=== PATIENT | male | born 1945 | race Caucasian/White ===

== ENCOUNTER 2018-07-01 18:14 | Inpatient (IN) | payer OTHER, MEDICARE ==
[2018-07-01] MEDS ORDERED: NA CHLORIDE 0.9% 1,000 ML ONE (18:53)
[2018-07-01 19:07] LABS: Absolute Lymphocytes (CBC) 1.9 K/uL (0.7-4.9); Absolute Monocytes 2.5 K/uL (0.1-1.3); Absolute Neutrophil 17.3 K/uL (1.8-8.0); Basophils % 0.2 % (0-1.3); Hematocrit 36.7 % (39.6-49.0); Lymphocytes % 8.6 % (15.3-44.8); MCH 30.2 pg (27.0-35.0); MCV 88.8 fL (80-100); MPV 9.1 fL (7.6-11.3); Monocytes % 11.4 % (3.3-12.3); RBC Red Blood Cell Count 4.13 M/uL (4.33-5.43)
[2018-07-01 19:11] LABS: Protime INR 1.14
--- NOTE | 2018-07-01 19:30 | RAD REPORT ---
EXAM DESCRIPTION: CT - Stone Protocol - 07/01/2018 7:01 pm CLINICAL HISTORY: Abdominal pain, abdominal distention COMPARISON: None. TECHNIQUE: Axial 5 mm thick images were obtained without oral or IV contrast. The [id number]-[id number] span s the entirety of the system partially obscuring uppermost abdomen and lung bases. All CT scans are performed using dose optimization technique as appropriate and may include automated exposure control or mA/KV adjustment according to patient size. FINDINGS: No hydronephrosis is present and no obstructing ureteral calculi. No suspicious renal mass es. Isodense masses and pyelonephritis are not excluded on a stone protocol CT scan. Bilateral perine phric stranding is present. Right kidney is incompletely rotated. Urinary bladder is mostly contracte d. Superiorly directed spurring from the right-side pubic symphysis has mild mass effect on the bladd er base. No bladder calculus. Prostate gland and seminal vesicles within normal range. Imaged portions of the liver, spleen and pancreas show no suspicious findings on non-contrast imaging . Cholecystectomy changes are present. No biliary tree dilatation. No significant adrenal finding. No suspicious bowel findings. No mass or bulky lymphadenopathy. Bilateral fat filled inguinal hernias are present with no acute com ponents. A very small fat only umbilical hernia is present. No free air, free fluid or inflammatory s tranding. Disc and bony degenerative changes are present. No destructive bone process. IMPRESSION: No hydronephrosis, obstructing calculus or acute finding seen. Isodense masses and pyelonephritis are not excluded on stone protocol technique. No acute GI process. Full findings are detailed in the body of the report.
[2018-07-01 19:35] LABS: Albumin 2.8 g/dL (3.4-5.0); Bilirubin Direct 0.1 mg/dL (0-0.2); CKMB Creatine Kinase MB 4.2 ng/mL (0.3-3.6); Magnesium 2.1 mg/dL (1.8-2.4); Potassium 3.3 mmol/L (3.5-5.1); Protein, Total 7.4 g/dL (6.4-8.2)
[2018-07-01 19:38] LABS: Bilirubin Total 0.4 mg/dL (0.2-1.0)
[2018-07-01] MEDS ORDERED: CEFEPIME 2 GM VIAL ONE (19:43)
[2018-07-01] MEDS ORDERED: LIDOCAINE VISCOUS 2% SOLN 15 ML UDC ONE (19:43)
[2018-07-01] MEDS ORDERED: NA CHLORIDE 0.9% 100 ML IV ONE (19:43)
--- NOTE | 2018-07-01 20:01 | RAD REPORT ---
EXAM DESCRIPTION: RAD - Chest Single View - 07/01/2018 6:58 pm CLINICAL HISTORY: Cough, shortness of breath COMPARISON: July 01, 2018 TECHNIQUE: AP portable chest image was obtained 1846 hours . FINDINGS: Continued mild prominence of the lung base markings. No definitive infiltrate. No consolid ation, mass or failure finding. Heart and vasculature are normal. No measurable pleural effusion and no pneumothorax. No gross bony abnormality seen. No acute aortic findings suspected. IMPRESSION: No acute cardiopulmonary process. No new finding from earlier study.
--- NOTE | 2018-07-01 20:30 | ER ---
Nurse's Notes [facility] Name: Jamie Mistry Age: 72 yrs Sex: Male : 1945 Arrival Date: 07/01/2018 Time: 18:18 Bed 6 Private MD: Silver Joe T Diagnosis: Hypotension;Unspecified kidney failure;Hypokalemia;Rhabdomyolysis;Obesity, unspecified;Elevated white blood cell count;Cystitis Presentation: 07/01 18:36 Presenting complaint: Patient states: " I had some blood drawn earlier and they said I ph needed to come in because my WBC was high and my kidney function was bad." Pt reports diarrhea on Saturday, also reports sweating and chills, denies pain, states, " I took my blood pressure this morning and it was normal and then when I took it again it was low (90s/60s) and it hasn't gotten above 100 all day." Pt diaphoretic in triage. Transition of care: patient was not received from another setting of care. Onset of symptoms was July 01, 2018. Risk Assessment: Do you want to hurt yourself or someone else? Patient reports no desire to harm self or others. Initial Sepsis Screen: Does the patient meet any 2 criteria? Systolic BP < 90 mmHg. HR > 90 bpm. Yes. Care prior to arrival: None. 18:36 Method Of Arrival: Ambulatory ph 18:36 Acuity: LILI 3 ph 21:19 Initial Sepsis Screen: Does the patient have a suspected source of infection? No. ak1 Patient's initial sepsis screen is negative. Historical: - Allergies: 18:42 PENICILLINS; ph 18:42 Sulfa (Sulfonamide Antibiotics); ph - Home Meds: 18:42 unknown BP med w/ diuretic [Active]; ph - PMHx: 18:42 Hypertension; ph - PSHx: 18:42 Cholecystectomy; Appendectomy; ph - Immunization history:: Adult Immunizations unknown. - Social history:: Smoking status: Patient/guardian denies using tobacco. - Ebola Screening: : No symptoms or risks identified at this time. - Family history:: not pertinent. Screenin:40 Abuse screen: Denies threats or abuse. Denies injuries from another. Nutritional hb screening: No deficits noted. Tuberculosis screening: No symptoms or risk factors identified. Fall Risk Total Ngo Fall Scale indicates Low Risk Score (25-44 pts). Fall prevention measures have been instituted. Side Rails Up X 2 Frequent Obs/Assesments occuring As available Patient and Family Educated on Fall Prevention Program and strategies. Assessment: 19:01 General: Appears in no apparent distress. ill, Behavior is calm, cooperative. Pain: hb Denies pain. Neuro: Level of Consciousness is awake, alert, obeys commands, Oriented to person, place, time, situation. Cardiovascular: Heart tones S1 S2 present Capillary refill < 3 seconds. Respiratory: Airway is patent Trachea midline Respiratory effort is even, unlabored, Respiratory pattern is regular, symmetrical, Breath sounds are clear bilaterally. GI: No signs and/or symptoms were reported involving the gastrointestinal system. : No signs and/or symptoms were reported regarding the genitourinary system. EENT: No signs and/or symptoms were reported regarding the EENT system. Derm: Skin is intact, is healthy with good turgor, Skin is diaphoretic, Skin is pale. Musculoskeletal: No signs and/or symptoms reported regarding the musculoskeletal system. 20:21 Reassessment: PT ABLE TO AMBULATE TO RESTROOM AND URINATE WITHOUT ISSUE, MD NOTIFIED. bp OLIVAS CANCELLED BY MD. PRE VOID BLADDER SCAN REVEALED NO RETENTION, 150CC IN BLADDER. Vital Signs: 18:39 BP 98 / 64; Pulse 110; Resp 22; Temp 97.7(TE); Pulse Ox 97% on R/A; Weight 151.5 kg; ph 19:58 ak1 20:26 BP 97 / 48; Pulse 103; Resp 25; Pulse Ox 97% ; bp 21:18 BP 119 / 56; Pulse 102; Resp 25; Temp 97.7(O); Pulse Ox 99% on R/A; Pain 0/10; ak1 19:58 150mL from bladder scan pre-void. ak1 ED Course: 18:18 Patient arrived in ED. mr 18:18 Silver Joe MD is Private Physician. mr 18:29 Rafael Phillips MD is Attending Physician. angie 18:36 Missed attempt(s): 20 gauge in right forearm. by Hernan WILLIAMSON. Bleeding controlled, band hb aid applied, catheter tip intact. 18:39 Triage completed. ph 18:40 Patient has correct armband on for positive identification. Placed in gown. Bed in low hb position. Call light in reach. Side rails up X 1. 18:40 Inserted saline lock: 22 gauge in left antecubital area, using aseptic technique. Blood hb collected. 18:42 Arm band placed on Patient placed in an exam room, on a stretcher, in view of staff ph members, on quality assurance monitor body, on pulse oximetry. 18:56 Janette Patel, RN is Primary Nurse. ak1 18:56 X-ray completed. Portable x-ray completed in exam room. Patient tolerated procedure mh1 well. 18:56 XRAY Chest (1 view) In Process Unspecified. EDMS 19:02 CT Stone Protocol In Process Unspecified. EDMS 19:42 Notified ED physician of a critical lab result(s). CR 5.4, CPK 3714 Dr Alan moncada notified. 19:56 Bladder scan completed. 150. mt 20:22 Inserted saline lock: 20 gauge in right hand, using aseptic technique. bp 20:25 Magalis Deleon MD is Hospitalizing Provider. angie 21:16 No provider procedures requiring assistance completed. Patient admitted, IV remains in ak1 place. Administered Medications: 18:45 Drug: NS 0.9% 500 ml Route: IV; Rate: bolus; Site: left antecubital; hb 19:57 Follow up: IV Status: Completed infusion ak1 20:20 Drug: NS 0.9% 1000 ml Route: IV; Rate: 125 ml/hr; Site: right hand; bp 22:02 Follow up: IV Status: Completed infusion ak1 20:20 Drug: Cefepime 2 grams Route: IVPB; Rate: 200 ml/hr; Infused Over: 30 mins; Site: right bp hand; 21:58 Follow up: IV Status: Completed infusion ak1 20:25 Not Given (Duplicate Order): NS 0.9% 1000 ml IV at 125 ml/hr continuous bp 20:55 Drug: Pepcid 20 mg Route: IVP; Site: right hand; lp1 21:57 Follow up: Response: No adverse reaction ak1 20:55 Drug: Aspirin 81 mg Route: PO; lp1 21:57 Follow up: Response: No adverse reaction ak1 20:55 Drug: Potassium Chloride 20 mEq Route: PO; lp1 21:56 Follow up: Response: No adverse reaction ak1 Outcome: 20:30 Decision to Hospitalize by Provider. angie 21:17 Condition: stable ak1 21:17 Instructed on the need for admit. 22:03 Admitted to Med/surg accompanied by tech, via wheelchair, room 428, with chart, Report ak1 called to Batsheva 22:13 Patient left the ED. ak1 Signatures: Dispatcher [employer] EDMS Rafael Phillips MD MD cha Rivera, Maria Gail Umana 1 Megan Arguelles, RN RN bb Melvina Parada RN RN 1 Janette Patel RN RN ak1 Margaret Chopra, Lourdes Katz RN, ph, Rachael Rose RN, mt, Brian RN RN bp
--- NOTE | 2018-07-01 20:30 | EDPHYS ---
Physician Documentation [facility] Name: Jamie Mistry Age: 72 yrs Sex: Male : 1945 Arrival Date: 07/01/2018 Time: 18:18 Bed 6 Private MD: Silver Joe T ED Physician Rafael Phillips HPI: 07/01 18:54 This 72 yrs old Male presents to ER via Ambulatory with complaints of angie Abnormal Lab Results. 18:54 The patient has shortness of breath at rest, with light activity. Onset: The angie symptoms/episode began/occurred 3 day(s) ago. Duration: The symptoms are continuous, and are steadily getting worse. The patient's shortness of breath has no apparent modifying factors. weak, tired, decreased urine output. The patient has experienced near-syncope, almost passed out, felt dizzy, felt faint, felt generally weak. Duration: The patient has had multiple episodes. Associated signs and symptoms: Pertinent positives: non-productive cough, dizziness, fever, nausea. Severity of symptoms: At their worst the symptoms were moderate in the emergency department the symptoms are unchanged. Historical: - Allergies: 18:42 PENICILLINS; ph 18:42 Sulfa (Sulfonamide Antibiotics); ph - Home Meds: 18:42 unknown BP med w/ diuretic [Active]; ph - PMHx: 18:42 Hypertension; ph - PSHx: 18:42 Cholecystectomy; Appendectomy; ph - Immunization history:: Adult Immunizations unknown. - Social history:: Smoking status: Patient/guardian denies using tobacco. - Ebola Screening: : No symptoms or risks identified at this time. - Family history:: not pertinent. ROS: 18:54 Constitutional: Negative for fever, chills, and weight loss, Eyes: Negative for injury, angie pain, redness, and discharge, ENT: Negative for injury, pain, and discharge, Neck: Negative for injury, pain, and swelling, Cardiovascular: Negative for chest pain, palpitations, and edema, Back: Negative for injury and pain, MS/Extremity: Negative for injury and deformity, Skin: Negative for injury, rash, and discoloration, Neuro: Negative for headache, weakness, numbness, tingling, and seizure, Psych: Negative for depression, anxiety, suicide ideation, homicidal ideation, and hallucinations, Allergy/Immunology: Negative for hives, rash, and allergies, Endocrine: Negative for neck swelling, polydipsia, polyuria, polyphagia, and marked weight changes, Hematologic/Lymphatic: Negative for swollen nodes, abnormal bleeding, and unusual bruising. 18:54 Respiratory: Positive for cough. 18:54 Abdomen/GI: Positive for nausea, abdominal distension. Exam: 18:54 Abdomen/GI: angie 18:54 Constitutional: This is a well developed, well nourished patient who is awake, alert, and in no acute distress. Head/Face: Normocephalic, atraumatic. Eyes: Pupils equal round and reactive to light, extra-ocular motions intact. Lids and lashes normal. Conjunctiva and sclera are non-icteric and not injected. Cornea within normal limits. Periorbital areas with no swelling, redness, or edema. ENT: Nares patent. No nasal discharge, no septal abnormalities noted. Tympanic membranes are normal and external auditory canals are clear. Oropharynx with no redness, swelling, or masses, exudates, or evidence of obstruction, uvula midline. Mucous membranes moist. Neck: Trachea midline, no thyromegaly or masses palpated, and no cervical lymphadenopathy. Supple, full range of motion without nuchal rigidity, or vertebral point tenderness. No Meningismus. Chest/axilla: Normal chest wall appearance and motion. Nontender with no deformity. No lesions are appreciated. Back: No spinal tenderness. No costovertebral tenderness. Full range of motion. Male : Normal genitalia with no discharge or lesions. Skin: Warm, dry with normal turgor. Normal color with no rashes, no lesions, and no evidence of cellulitis. MS/ Extremity: Pulses equal, no cyanosis. Neurovascular intact. Full, normal range of motion. Neuro: Awake and alert, GCS 15, oriented to person, place, time, and situation. Cranial nerves II-XII grossly intact. Motor strength 5/5 in all extremities. Sensory grossly intact. Cerebellar exam normal. Normal gait. Psych: Awake, alert, with orientation to person, place and time. Behavior, mood, and affect are within normal limits. 18:54 Cardiovascular: Rate: tachycardic, Rhythm: regular, Pulses: Pulses are 4+ in bilateral radial, brachial, femoral, popliteal, posterior tibial and and dorsalis pedis arteries.. Heart sounds: normal, Edema: is not appreciated, JVD: is not appreciated. 18:54 Respiratory: mild respiratory distress is noted, Respirations: normal, Breath sounds: decreased breath sounds, that are mild, are scattered, rhonchi. 18:54 Musculoskeletal/extremity: Circulation is intact in all extremities. Sensation intact. [facility] Compartment Syndrome exam of affected extremity: is normal. DVT Exam: No signs of deep vein thrombosis. no pain, no swelling, no tenderness, negative Homans' sign noted on exam, no appreciated bluish discoloration, no erythema, no increased warmth. Vital Signs: 18:39 BP 98 / 64; Pulse 110; Resp 22; Temp 97.7(TE); Pulse Ox 97% on R/A; Weight 151.5 kg; ph 19:58 ak1 20:26 BP 97 / 48; Pulse 103; Resp 25; Pulse Ox 97% ; bp 21:18 BP 119 / 56; Pulse 102; Resp 25; Temp 97.7(O); Pulse Ox 99% on R/A; Pain 0/10; ak1 19:58 150mL from bladder scan pre-void. ak1 MDM: 18:29 Patient medically screened. [facility] 19:00 Data reviewed: vital signs, nurses notes, lab test result(s), EKG, radiologic studies, [facility] CT scan, plain films. 07/01 18:47 Order name: Basic Metabolic Panel; Complete Time: 20:20 [facility] 07/01 18:47 Order name: CBC with Diff; Complete Time: 20:20 [facility] 07/01 18:47 Order name: Ckmb; Complete Time: 20:20 [facility] 07/01 18:47 Order name: CPK; Complete Time: 20:20 [facility] 07/01 18:47 Order name: LFT's; Complete Time: 20:20 [facility] 07/01 18:47 Order name: Magnesium; Complete Time: 20:20 [facility] 07/01 18:47 Order name: NT PRO-BNP; Complete Time: 20:20 [facility] 07/01 18:47 Order name: PT-INR; Complete Time: 20:20 [facility] 07/01 18:47 Order name: Ptt, Activated; Complete Time: 20:20 [facility] 07/01 18:47 Order name: Troponin (emerg Dept Use Only); Complete Time: 20:20 [facility] 07/01 18:47 Order name: Blood Culture Adult (2) [facility] 07/01 18:47 Order name: Urine Culture [facility] 07/01 18:47 Order name: Lipase; Complete Time: 20:20 [facility] 07/01 18:47 Order name: Lactate; Complete Time: 20:20 [facility] 07/01 18:47 Order name: XRAY Chest (1 view); Complete Time: 20:20 [facility] 07/01 18:47 Order name: EKG; Complete Time: 18:47 [facility] 07/01 18:47 Order name: Cardiac monitoring; Complete Time: 18:57 [facility] 07/01 18:47 Order name: EKG - Nurse/Tech; Complete Time: 19:16 [facility] 07/01 18:47 Order name: CT Stone Protocol; Complete Time: 20:20 [facility] 07/01 18:47 Order name: Procalcitonin; Complete Time: 20:20 [facility] 07/01 20:30 Order name: TSH [facility] 07/01 20:38 Order name: Urine Dipstick--Ancillary (enter results) ms 07/01 20:40 Order name: CONS Physician Consult EDWI 07/01 18:47 Order name: IV Saline Lock; Complete Time: 18:58 [facility] 07/01 18:47 Order name: Labs collected and sent; Complete Time: 18:57 [facility] 07/01 18:47 Order name: O2 Per Protocol; Complete Time: 18:57 [facility] 07/01 18:47 Order name: O2 Sat Monitoring; Complete Time: 18:57 [facility] 07/01 18:47 Order name: Urine Dipstick-Ancillary (obtain specimen); Complete Time: 20:25 [facility] 07/01 18:47 Order name: Bladder Scanner; Complete Time: 19:55 [facility] 07/01 19:09 Order name: Morales: viscus lido; Complete Time: 20:08 [facility] Administered Medications: 18:45 Drug: NS 0.9% 500 ml Route: IV; Rate: bolus; Site: left antecubital; hb 19:57 Follow up: IV Status: Completed infusion ak1 20:20 Drug: NS 0.9% 1000 ml Route: IV; Rate: 125 ml/hr; Site: right hand; bp 22:02 Follow up: IV Status: Completed infusion ak1 20:20 Drug: Cefepime 2 grams Route: IVPB; Rate: 200 ml/hr; Infused Over: 30 mins; Site: right bp hand; 21:58 Follow up: IV Status: Completed infusion ak1 20:25 Not Given (Duplicate Order): NS 0.9% 1000 ml IV at 125 ml/hr continuous bp 20:55 Drug: Pepcid 20 mg Route: IVP; Site: right hand; lp1 21:57 Follow up: Response: No adverse reaction ak1 20:55 Drug: Aspirin 81 mg Route: PO; lp1 21:57 Follow up: Response: No adverse reaction ak1 20:55 Drug: Potassium Chloride 20 mEq Route: PO; lp1 21:56 Follow up: Response: No adverse reaction ak1 Disposition: 07/01/18 20:30 Hospitalization ordered by Magalis Deleon for Inpatient Admission. Preliminary diagnosis are Hypotension, Unspecified kidney failure, Hypokalemia, Rhabdomyolysis, Obesity, unspecified, Elevated white blood cell count, Cystitis. - Bed requested for Telemetry/MedSurg (Inpatient). - Status is Inpatient Admission. ak1 - Condition is Fair. - Problem is new. - Symptoms have improved. UTI on Admission? Yes Signatures: Dispatcher [employer] EDWI Rafael Phillips MD MD cha Pena, Laura, RN RN lp1 Janette Patel RN RN ak1 Margaret Chopra RN RN Marci Licea RN RN Lourdes Britt RN TERI Esau Santos RN RN bp Corrections: (The following items were deleted from the chart) 20:56 20:30 Hospitalization Ordered by Magalis Deleon MD for Inpatient Admission. Preliminary cg diagnosis is Hypotension; Unspecified kidney failure; Hypokalemia; Rhabdomyolysis; Obesity, unspecified; Elevated white blood cell count; Cystitis. Bed requested for Telemetry/MedSurg (Inpatient). Status is Inpatient Admission. Condition is Fair. Problem is new. Symptoms have improved. UTI on Admission? Yes. angie 22:13 20:56 07/01/2018 20:30 Hospitalization Ordered by Magalis Deleon MD for Inpatient ak1 Admission. Preliminary diagnosis is Hypotension; Unspecified kidney failure; Hypokalemia; Rhabdomyolysis; Obesity, unspecified; Elevated white blood cell count; Cystitis. Bed requested for Telemetry/MedSurg (Inpatient). Status is Inpatient Admission. Condition is Fair. Problem is new. Symptoms have improved. UTI on Admission? Yes. cg
[2018-07-01] MEDS ORDERED: ASPIRIN 81 MG CHEWABLE TABLET ONE (21:01)
[2018-07-01] MEDS ORDERED: FAMOTIDINE 20 MG/2 ML VIAL IV ONE (21:01)
[2018-07-01] MEDS ORDERED: POTASSIUM CL SA 10 MEQ TAB PO ONE (21:01)
[2018-07-01 21:06] LABS: Urine Blood 1+ (NEG); Urine Glucose NEGATIVE (NEG); Urine Protein 2+ (NEG); Urine Specific Gravity >1.030 (1.005-1.030)
--- NOTE | 2018-07-01 21:43 | P.HP ---
Certification for Inpatient Patient admitted to: Inpatient With expected LOS: >2 Midnights Practitioner: I am a practitioner with admitting privileges, knowledge of patient current condition, hospital course, and medical plan of care. Services: Services provided to patient in accordance with Admission requirements found in Title 42 Section 412.3 of the Code of Federal Regulations Patient History Date of Service: 07/01/18 Reason for admission: Acute kidney injury History of Present Illness: Mr Mistry is a 72-year-old male with history of morbid obesity and hypertension , who came to the hospital referred by his PCP due to abnormal lab work. He states that last Saturday, has had a busy day at work, walking outside in the hot temperature, and he was not able to catch up with water. Since so, he has start to feel progressively weak and dizzy. He had some diarrhea episode. He denied any vomiting, but he stated that the food did not taste normal for him. He denied any fever, but has has chills and sweating episode. No abdominal pain , shortness of breath or chest pain. His blood pressure was on the lower side at home, 100's/ 60s. Yesterday he went to see his PCP, order lab work. The patient was called by the PCP office today, referring to the hospital due to significantly abnormal kidney function, creatinine in was 5.4, WBC 21.6, total CK 3714, elevated troponin I and procalcitonin. Lactate is within normal limits. Vital signs on arrival shows normal temperature, BP 98/64, HR 110. Allergies Penicillins Allergy (Verified 07/01/18 21:15) Rash Sulfa (Sulfonamide Antibiotics) Allergy (Verified 07/01/18 21:15) Rash - Past Medical/Surgical History -: Morbid obesity -: Hypertension -: Cholecystectomy -: Appendectomy - Family History Family History: Reviewed- Non-Contributory - Social History Smoking Status: Never smoker Alcohol use: Yes CD- Drugs: No Caffeine use: Yes Place of Residence: Home Review of Systems 10-point ROS is otherwise unremarkable Physical Examination - Physical Exam General: Alert, In no apparent distress HEENT: Atraumatic, PERRLA, Mucous membr. moist/pink, EOMI, Sclerae nonicteric Neck: Supple, 2+ carotid pulse no bruit, No LAD, Without JVD or thyroid abnormality Respiratory: Clear to auscultation bilaterally, Normal air movement Cardiovascular: Regular rate/rhythm, Normal S1 S2, Systolic murmur (Aortic area radiating to bilateral neck) Gastrointestinal: Normal bowel sounds, No tenderness Musculoskeletal: No tenderness Integumentary: No rashes Neurological: Normal speech, Normal strength at 5/5 x4 extr, Normal tone, Normal affect Lymphatics: No axilla or inguinal lymphadenopathy - Studies Laboratory Data (last 24 hrs) 07/01/18 18:30: PT 13.5 H, INR 1.14, APTT 25.5 07/01/18 18:30: WBC 21.6 H*, Hgb 12.5 L, Hct 36.7 L, Plt Count 247 07/01/18 18:30: Sodium 133 L, Potassium 3.3 L, BUN 63 H, Creatinine 5.40 H*, Glucose 151 H, Magnesium 2.1, Total Bilirubin 0.4, AST 103 H, ALT 57, Alkaline Phosphatase 145 H, Lipase 135 Assessment and Plan - Problems (Diagnosis) (1) Acute renal injury Current Visit: Yes Status: Acute (2) Rhabdomyolysis Current Visit: Yes Status: Acute Qualifiers: Rhabdomyolysis type: non-traumatic Qualified Code(s): M62.82 - Rhabdomyolysis (3) Dehydration Current Visit: Yes Status: Acute (4) Morbid obesity Current Visit: Yes Status: Acute (5) Leukocytosis Current Visit: Yes Status: Acute Qualifiers: Leukocytosis type: unspecified Qualified Code(s): D72.829 - Elevated white blood cell count, unspecified (6) Systolic murmur Current Visit: Yes Status: Acute - Plan 1. rhabdomyolysis: Likely due to severe volume depletion and possible heat exhaustion. Will continue with aggressive volume resuscitation. 2. Acute renal injury: Due to volume depletion, continue IV fluids. [employer]ing Supervisor has been consulted. 3. Leukocytosis: This is most likely secondary to dehydration, due to his clinical history and presentation. In any case within continue with sepsis workup, procalcitonin is elevated, blood cultures are in process, continue empiric Rocephin IV. 4. Hypertension: At this point his BP is on the lower side with due to volume depletion. Continue IV fluids. 5. Systolic murmur: Will order an echocardiogram. - Advance Directives Does patient have a Living Will: No Does patient have a Durable POA for Healthcare: No - Code Status/Comfort Care Code Status Assessed: Yes Code Status: Full Code
[2018-07-02] MEDS ORDERED: ONDANSETRON 4 MG/2 ML VIAL IV PRN (02:18)
[2018-07-02] MEDS: NA CHLORIDE 0.9% 1,000 ML IV SCH ×2 (03:10→10:26)
[2018-07-02 04:39] LABS: Absolute Lymphocytes (CBC) 1.6 K/uL (0.7-4.9); Absolute Monocytes 2.1 K/uL (0.1-1.3); Absolute Neutrophil 14.8 K/uL (1.8-8.0); Basophils % 0.3 % (0-1.3); Eosinophils % 0.2 % (0-4.4); Hematocrit 33.3 % (39.6-49.0); Lymphocytes % 8.8 % (15.3-44.8); MCH 30.6 pg (27.0-35.0); MCV 89.4 fL (80-100); MPV 9.5 fL (7.6-11.3); Monocytes % 11.4 % (3.3-12.3); RBC Red Blood Cell Count 3.73 M/uL (4.33-5.43)
[2018-07-02 05:12] LABS: Potassium 3.2 mmol/L (3.5-5.1)
[2018-07-02] MEDS ORDERED: POTASSIUM CL SA 10 MEQ TAB PO ONE (06:14)
[2018-07-02 06:25] LABS: Magnesium 1.9 mg/dL (1.8-2.4)
--- NOTE | 2018-07-02 07:20 | EKG ---
Test Date: 2018-07-01 Test Time: 19:10:55 Head Miller: MARTINA MEASUREMENT RESULTS: Intervals: Rate: 95 MO: 162 QRSD: 94 QT: 332 QTc: 417 [place]: P: 59 MO: 162 QRS: 66 T: 65 INTERPRETIVE STATEMENTS: Sinus rhythm with premature atrial complexes Otherwise normal ECG No previous ECG available for comparison Electronically Signed On 07-02-18 07:19:47 CDT by Raymundo [place]
[2018-07-02 09:14] LABS: Thyroid Stimulating Hormone 0.28 uIU/mL (0.36-3.74); Uric Acid 11.3 mg/dL (3.5-7.2)
--- NOTE | 2018-07-02 10:01 | RAD REPORT ---
EXAM DESCRIPTION: US - Renal Ultrasound-Complete - 07/02/2018 9:26 am CLINICAL HISTORY: Acute renal failure COMPARISON: July 01 FINDINGS: The right kidney measures 13.0 x 6.4 x 6.2 cm. The left kidney measures 16.0 x 6.6 x 6.3 cm. Renal cortical thickness is normal. There is a slight increase in cortical echogenicity which cou ld be a body habitus artifact or mild medical renal disease. No hydronephrosis or suspicious renal ma ss. Bladder is mostly contracted. No gross abnormality seen. IMPRESSION: No hydronephrosis or suspicious renal mass. Slight increase in cortical echogenicity could be medical renal disease or body habitus artifact.
[2018-07-02] MEDS ORDERED: MAGNESIUM SULFATE 1 gm IVPB 1 GM/100 ML BAG IV ONE (11:41)
[2018-07-02] MEDS ORDERED: KCL 20 MEQ/100 mL IVPB 20 MEQ/100 ML BAG IV SCH (12:00)
[2018-07-02 12:15] LABS: Urine Protein/Creatinine Ratio 0.56 ratio (<0.15)
[2018-07-02] MEDS: NACHLORIDE 0.45% 1,000 ML with NA BICARB 8.4% 75 MEQ IV SCH ×4 (12:17→21:44)
[2018-07-02 12:39] LABS: Arterial Blood Carboxyhemoglob 1.1 % (0-1.5); Blood Gas Oxyhemoglobin 94.3 % (94-97); Blood O2 Saturation 96.1 % (92-98.5)
--- NOTE | 2018-07-02 12:49 | ECHO ---
HEIGHT: 6 ft 0 in WEIGHT: 333 lb 14.4 oz DATE OF STUDY: 07/02/[address]: Magalis Berman MD 2-DIMENSIONAL: YES M.MODE: YES DOPPLER: YES COLOR FLOW: YES TDS: NO PORTABLE: NO DEFINITY: NO BUBBLE STUDY: NO DIAGNOSIS: SYSTOLIC MURMUR CARDIAC HISTORY: CATHERIZATION: NO SURGERY: NO PROSTHETIC VALVE: NO PACEMAKER: NO MEASUREMENTS (cm) DIASTOLIC (NORMALS) SYSTOLIC (NORMALS) IVSd 1.4 (0.6-1.2) LA Diam 5.0 (1.9-4.0) LVEF 76% LVIDd 4.5 (3.5-5.7) LVIDs 2.5 (2.0-3.5) %FS 45% LVPWd 1.3 (0.6-1.2) Ao Diam 2.4 (2.0-3.7) 2 DIMENSIONAL ASSESSMENT: RIGHT ATRIUM: NORMAL LEFT ATRIUM: DILATED RIGHT VENTRICLE: NORMAL LEFT VENTRICLE: LEFT VENTRICULAR HYPERTROPHY TRICUSPID VALVE: NORMAL MITRAL VALVE: NORMAL PULMONIC VALVE: NORMAL AORTIC VALVE: NORMAL PERICARDIAL EFFUSION: NONE AORTIC ROOT: NORMLA LEFT VENTRICULAR WALL MOTION: NORMAL DOPPLER/COLOR FLOW: MODERATE AORTIC STENOSIS. COMMENTS: MODERATE AORTIC STENOSIS. AORTIC VALVE AREA 1.1 CENTIMETERS SQUARED. NORMAL LEFT VENTRICULAR EJECTION FRACTION AND FUNCTION. LEFT VENTRICULAR HYPERTROPHY. LEFT ATRIAL ENLARGEMENT. NO EFFUSION. TECHNOLOGIST: Chilango MILES
--- NOTE | 2018-07-02 13:22 | P.PN ---
Subjective Date of Service: 07/02/18 Chief Complaint: Acute kidney injury Subjective: Tolerating diet, Ambulating, Improving, Working w/ PT, Doing well Review of Systems General: As per HPI Physical Examination - Vital Signs Temperature: 97.7 F Blood Pressure: 109/58 Pulse: 78 Respirations: 18 Pulse Ox (%): 98 - Physical Exam General: Alert, In no apparent distress HEENT: Atraumatic, PERRLA, EOMI Neck: Supple, JVD not distended Respiratory: Clear to auscultation bilaterally, Normal air movement Cardiovascular: Regular rate/rhythm, Normal S1 S2 Gastrointestinal: Normal bowel sounds, No tenderness Musculoskeletal: No tenderness Integumentary: No rashes Neurological: Normal speech, Normal tone, Normal affect Lymphatics: No axilla or inguinal lymphadenopathy - Studies Laboratory Data (last 24 hrs) 07/01/18 18:30: PT 13.5 H, INR 1.14, APTT 25.5 07/01/18 18:30: WBC 21.6 H*, Hgb 12.5 L, Hct 36.7 L, Plt Count 247 07/01/18 18:30: Sodium 133 L, Potassium 3.3 L, BUN 63 H, Creatinine 5.40 H*, Glucose 151 H, Magnesium 2.1, Total Bilirubin 0.4, AST 103 H, ALT 57, Alkaline Phosphatase 145 H, Lipase 135 Medications List Reviewed: Yes Assessment & Plan - Problems (Diagnosis) (1) Rhabdomyolysis Onset Date: 07/02/18 Current Visit: Yes Status: Acute Plan: CPK elevated. Now improving -IV fluids with Nephrology consulted. -Will repeat lab lanny AM Qualifiers: Rhabdomyolysis type: non-traumatic Qualified Code(s): M62.82 - Rhabdomyolysis (2) Acute renal injury Onset Date: 07/02/18 Current Visit: Yes Status: Acute Plan: BUN.CR elevated. Most likely 2.2 to Dehydration and Rhabdomylosis -IV fluids and avoid Nephrotoxic agent (3) Dehydration Onset Date: 07/02/18 Current Visit: Yes Status: Acute (4) Morbid obesity Onset Date: 07/02/18 Current Visit: Yes Status: Chronic (5) Systolic murmur Onset Date: 07/02/18 Current Visit: Yes Status: Chronic Plan: ECHO with aortic Stenosis -Will cardiology consulted outpt for further workup Discharge Plan: Home Plan to discharge in: 48 Hours - Code Status/Comfort Care Code Status Assessed: Yes Critical Care: No
--- NOTE | 2018-07-02 15:52 | CON ---
Date of Consultation: 07/02/2018 Consulting Physician: Dr. Gabriel. Reason For Consultation: Elevated BUN, creatinine, rhabdomyolysis, hypertension. History Of Present Illness: This is a pleasant 72-year-old gentleman with significant past medical h istory of morbid obesity, hypertension, hyperlipidemia, osteoarthritis. The patient was in his [facility] state of health. According to him for the last few days, he working hard without real rest. The patient found to have weakness and dizziness with episode of multiple diarrhea, for that reason, he r eported to his primary. In the primary office, CK was elevated to 3700 and creatinine was up to 5.4, for that reason, the patient was admitted in the ER, was hypotensive, systolic down to 90s. The [facility] ient admits that for the last almost couple of months, he using Advil 3-6 tablets in a daily basis. The patient has hesitancy, no hematuria or foamy urine. No other autoimmune symptoms. Past Medical History: Include, 1.Obesity. 2.Hypertension. 3.Hyperlipidemia. 4.Osteoarthritis, on Advil. Past Surgical History: Include cholecystectomy, appendectomy. Family History: Positive for hypertension. Social History: Denies smoking, denies drinking, denies drug abuse. Review of Systems: Head and Neck: No red eye. No ear pain. GI: No nausea, no vomiting. : No polyuria. No dysuria. No hematuria. Has hesitancy. BELLMAN CAPTAIN: Not applicable. Respiratory: No shortness of breath. Cardiovascular: No chest pain. Neurologic: Has multiple joint pain. Musculoskeletal: Multiple joint pain and low back pain. Endocrine: No polydipsia. Skin: No rash. Physical Examination: Vital Signs: When I saw the patient, blood pressure 104/59, pulse of 80, afebrile. The patient was on IV fluid. Voiding well. Chest: Clear to auscultation. Heart: S1, S2. Regular. Abdomen: Morbidly obese. Could not appreciate any organomegaly or renal bruit. Extremities: Plus edema. Vascular Exam: No carotid bruit. Skin: No rashes. Neurologic: Alert and oriented x3. Nonfocal. No tremor. Laboratory Data: WBC 18.7, H and H 11.4/33.3, platelets 205. On admission, H and H 12.5/36.7, eosin ophil 200 on the peripheral. Sodium 135, potassium 3.2, bicarb 23, BUN 71, creatinine 4.9, GFR of 12 , uric acid 11.3, calcium 7.5, magnesium 1.9. CK 3900. Cardiac enzyme was negative. TSH 0.2. Urin alysis, +2 protein. Specific gravity above 1.030. Renal ultrasound has normal size to a large size kidney with severe disproportion in the kidney size, right kidney 13, left kidney of 16. No hydronep hrosis. Has some echogenicity. Medications: Current medications in the hospital include, Lovenox, Tylenol, Zofran. Normal saline a t 150 per hour. KCl. Assessment And Plan: Acute kidney injury, multifactorial, secondary to, 1.Rhabdomyolysis. 2.Nonsteroidal use. 3.Dehydration and poor perfusion acute tubular necrosis. 4.Superimposed with ARB and diuresis with hydrochlorothiazide. The patient nonoliguric. No hyperka lemia or acidosis. Given the component of rhabdomyolysis even though that he does not have any acido sis, I am going to start the patient on bicarb drip, and we will monitor the patient. I agree with h olding hydrochlorothiazide and ARB for the time being and nonsteroidal, we will monitor. 5.Given the disproportion in the kidney size, renal artery stenosis has a possibility. I am going t o be reluctant to do any angiogram for the time being. I will keep eye on it. If kidney function di d not improve that is another possibility that we need to be rule it out down in the row with renal s can or MRA if needed. 6.Given the rhabdomyolysis and without any nonsteroidal, I am going to send for TSH to evaluate. 7.Rhabdomyolysis, will start bicarb drip. We will aggressively replace potassium and magnesium and we will follow up. 8.Hypertension, with the presence of acute kidney injury. Hold hydrochlorothiazide and ARB, and we will monitor. Currently blood pressure controlled. He was low blood pressure on presentation, so we will hold all blood pressure medication. 9.Hypokalemia, hypomagnesemia. We will supplement aggressively given the rhabdomyolysis. 10.Contraction alkalosis with metabolic acidosis secondary to renal failure as above. 11.Marginal hyperkalemia. We will continue hydration. Case discussed with the patient, verbalized understanding. YOAN/ANNMARIE Voice ID: [id number] Report ID: [id number]
[2018-07-02] MEDS: ENOXAPARIN 30 MG/0.3 ML SQ SCH (18:39)
[2018-07-02] MEDS: ACETAMINOPHEN 500 MG TAB PO PRN (18:53)
[2018-07-03] MEDS: NACHLORIDE 0.45% 1,000 ML with NA BICARB 8.4% 75 MEQ IV SCH ×8 (02:20→18:35)
[2018-07-03 05:23] LABS: Albumin 2.1 g/dL (3.4-5.0); Magnesium 2.2 mg/dL (1.8-2.4); Phosphorus 2.2 mg/dL (2.5-4.9)
[2018-07-03] MEDS ORDERED: POTASSIUM CL SA 10 MEQ TAB PO ONE (05:43)
[2018-07-03] MEDS: ACETAMINOPHEN 500 MG TAB PO PRN (09:18)
[2018-07-03 10:19] LABS: Rheumatoid Factor NEG (NEG)
--- NOTE | 2018-07-03 16:55 | PN ---
Date of Progress Note: 07/03/2018 Code status: Full Subjective: The patient seen and examined. Chart reviewed and case discussed with RN. The patient states he is feeling better. He wanted to move around and ambulate. He does report some constipation. Review of Systems: Negative except as above. Medications: List reviewed. Physical Examination: Vital Signs: Temperature 97.6, heart rate 79, blood pressure 139/64, respirations 17, O2 saturation 97% on room air. General: Awake, alert, oriented x3, not in any acute distress. Elderly male, somewhat ill-appearing, obese, BMI of 48.2. CV: S1, S2. No murmurs. Peripheral pulses present. Respiratory: Moving air well bilaterally. No wheezing. Gastrointestinal: Abdomen is soft, nontender, nondistended. Positive bowel sounds. Extremities: No clubbing, cyanosis. The patient does have 1+ peripheral edema. Neurologic: Nonfocal. Laboratory Data: Sodium 135, potassium 3, chloride 99, CO2 of 28, BUN 64, creatinine 2.7, glucose 130, calcium 7, phosphorus 2.2, magnesium 2.2. CK is 3039, troponin 0.19, 0.12. Urine culture growing Enterococcus faecalis, vancomycin sensitive. Blood culture, no growth to date. Assessment And Plan: A 72-year-old male with: 1. Acute rhabdomyolysis, nontraumatic, CK levels improving, still elevated. We will continue with IV fluids with bicarb drip. Appreciate Nephrology input. 2. Acute kidney injury. His creatinine is improving secondary to rhabdomyolysis. We will avoid NSAIDs. Continue to monitor creatinine. 3. Elevated troponin level. No chest pain, likely secondary to demand mismatch. We will follow up with Cardiology recommendations. Echocardiogram does show aortic stenosis. 4. Aortic stenosis. 5. Morbid obesity, BMI 48.2. 6. Acute dehydration, improving. 7. Hypokalemia. Replace and monitor. 8. Hypophosphatemia. We will replace and monitor. 9. Moderate protein-calorie malnutrition. Albumin is 2.1. 10. Urinary tract infection with Enterococcus faecalis. We will add IV antibiotics. Blood cultures, negative to date. Plan: We will continue to monitor, likely discharge in the next 24 to 48 hours. /MODL Voice ID: [id number] Report ID: [id number] MTDD
--- NOTE | 2018-07-03 16:58 | PN ---
Date of Progress Note: 07/03/2018 Subjective: The patient had some swelling. The patient was admitted with rhabdomyolysis, reviewing the record from the PCP and his lab back in February 2018, creatinine 1 with GFR of 71. Physical Examination: Vital Signs: When I saw the patient, blood pressure 139/64, pulse of 79, afebrile. The patient had good urine output. Chest: Clear to auscultation. Heart: S1, S2. Regular. Abdomen: Soft, nontender. Extremities: +1 edema. Laboratory Data: WBC 18.7, H and H 11.4/33.3, platelets 205. Sodium 135, potassium 3, bicarb 28, BU N 64, creatinine down to 2.7, GFR of 23. Calcium 7, phos 2.2. CK dropped down to 3000. PTH is stil l pending. Renal ultrasound came normal size kidney, 13 x 16, no hydro. Assessment And Plan: 1.Acute kidney injury secondary to rhabdomyolysis superimposed with dehydration and prerenal superim posed with nonsteroidal use and ARB. On the recovery part, I can continue hydration for the patient. We will continue bicarb for the time being and we will follow up the patient. 2.Hypertension, controlled, optimal, given the acute kidney injury, and the route to keep holding hy drochlorothiazide, keep holding ARB. 3.Rhabdomyolysis with acute kidney injury. I am going to continue bicarb drip. Continue hydration. Encouraged the patient for oral hydration. 4.Hypokalemia, hypomagnesemia, magnesium replenished. I going to continue potassium supplement. YOAN/ANNMARIE Voice ID: [id number] Report ID: [id number]
[2018-07-03] MEDS: ENOXAPARIN 30 MG/0.3 ML SQ SCH (18:36)
[2018-07-03] MEDS ORDERED: HOME MED 1 EA UNK (Travoprost (Benzalkonium) [Travatan 0.004% Eye Drop] 1 GTT) OP SCH (21:00)
[2018-07-03] MEDS: HOME MED 1 EA UNK (Brimonidine Tartrate/Timolol [Combigan 0.2%-0.5% Eye Drops] 1 GTT) LEFT EYE SCH (21:00)
[2018-07-04] MEDS: NACHLORIDE 0.45% 1,000 ML with NA BICARB 8.4% 75 MEQ IV SCH ×4 (01:51→07:00)
[2018-07-04 05:49] LABS: Absolute Lymphocytes (CBC) 1.2 K/uL (0.7-4.9); Absolute Neutrophil 8.4 K/uL (1.8-8.0); Basophils % 1.2 % (0-1.3); Eosinophils % 2.5 % (0-4.4); Hematocrit 29.7 % (39.6-49.0); Lymphocytes % 11.2 % (15.3-44.8); MCH 30.7 pg (27.0-35.0); MCV 88.5 fL (80-100); MPV 9.5 fL (7.6-11.3); Monocytes % 9.2 % (3.3-12.3); RBC Red Blood Cell Count 3.35 M/uL (4.33-5.43)
[2018-07-04 05:52] LABS: Urine Appearance CLEAR; Urine Bilirubin NEGATIVE (NEG); Urine Blood 3+ (NEG); Urine Color YELLOW; Urine Glucose NEGATIVE (NEG); Urine Protein 1+ (NEG); Urine Urobilinogen 0.2 mg/dL (0.2-1.0)
[2018-07-04 06:12] LABS: Urine Microscopic Reflex ORDER UMIC
[2018-07-04 06:14] LABS: Urine Bacteria <20 /HPF (NONE SEEN); Urine Culture Reflex Order NOT NEEDED
[2018-07-04 06:20] LABS: Albumin 2.2 g/dL (3.4-5.0); Magnesium 2.1 mg/dL (1.8-2.4); Potassium 3.1 mmol/L (3.5-5.1)
[2018-07-04] MEDS ORDERED: POTASSIUM 25 MEQ EFFERV TAB PO ONE (08:00)
[2018-07-04] MEDS ORDERED: POTASSIUM PHOS IN 0.9 % NACL 15 MMOL/250 ML BAG IV ONE (08:07)
[2018-07-04] MEDS: HOME MED 1 EA UNK (Brimonidine Tartrate/Timolol [Combigan 0.2%-0.5% Eye Drops] 1 GTT) LEFT EYE SCH (08:47)
[2018-07-04] MEDS ORDERED: NA CHLORIDE 0.9% 1,000 ML IV SCH (09:00)
[2018-07-04 15:33] LABS: Phosphorus 2.1 mg/dL (2.5-4.9); Potassium 3.2 mmol/L (3.5-5.1)
--- NOTE | 2018-07-04 15:53 | DS ---
Consultants: Dr. Dowling with Nephrology. Admitting Diagnoses: 1.Acute kidney injury. 2.Acute rhabdomyolysis, nontraumatic. 3.Acute dehydration. 4.Morbid obesity. BMI 47. 5.Leukocytosis. 6.Systolic murmur. Discharge Diagnoses: 1.Acute kidney injury, improving secondary to rhabdomyolysis and nonsteroidal anti-inflammatory drug s. 2.Acute rhabdomyolysis, nontraumatic, improving. 3.Elevated troponin level secondary to demand mismatch. 4.Aortic stenosis. 5.Morbid obesity. BMI 48.2. 6.Acute dehydration. 7.Hypokalemia. 8.Hypophosphatemia. 9.Moderate protein-calorie malnutrition. 10.Urinary tract infection secondary to Enterococcus faecalis. Hospital Course: The patient is a 72-year-old male comes into the hospital after PCP found abnormal lab work. The patient was found to have creatinine of 5.4, elevated WBC count, CK level was 3700. T he patient has been on NSAIDs and working outside in the heat. The patient was started on IV fluids. He did have some mild elevation of his troponin level. Echocardiogram was done, which showed EF of 76%. Did have moderate aortic stenosis and left ventricular hypertrophy. The patient will need to follow up with Cardiology as an outpatient for aortic stenosis and left ventricular hypertrophy. Rep eat troponin level trended down to 0.12. Did not have any acute EKG changes. His procalcitonin was initially elevated, white count normalized. He was found to have Enterococcus faecalis in his urine culture, sensitive to vancomycin. Unfortunately, the patient is allergic to penicillins, cannot take nitrofurantoin due to his creatinine clearance. Blood cultures were negative. The patient's kidney function improved and his creatinine came back down to 1.7. Dr. Dowling with Nephrology was also c onsulted. The patient was on bicarb drip. His ARB was held and he was counseled against taking any further NSAIDs. The patient voiced understanding. The patient was then able to ambulate. Denies an y muscular pain. His CK level was down to 1600. His potassium and other electrolytes were replaced. The patient will continue his blood pressure medication, HCTZ, but will have some potassium supplem ent, and he is to have a repeat BMP level in 1 week and to follow up with primary care physician with in that time frame. Follow up with payroll accounting clerk, Dr. Dowling in 2 weeks. Return to ER for worsenin g condition. Medications: As per medication reconciliation list. Finish a course of antibiotics for UTI. Diet: Renal. Activity: As tolerated. No strenuous activity. Total time spent discharging the patient was 33 minutes. Physical Examination: General: Awake, alert, oriented, no acute distress. CV: S1, S2. No murmurs. Respiratory: Moving air well bilaterally. No wheezing. Gastrointestinal: Abdomen is soft, nontender, nondistended. Positive bowel sounds. Extremities: No clubbing, cyanosis. The patient does have lower extremity edema. Neurologic: Nonfocal. SA/MODL Voice ID: [id number] Report ID: [id number]
[2018-07-05 20:50] LABS: Anti-Cardiolipin IgA Antibody <11 APL (<=11)
[2018-07-07 19:18] LABS: Scleroderma Antibody (Scl-70) <1.0 AI (<1.0)
== END 2018-07-04 18:47 | disposition home or self-care (01) | DRG 683 ==
LOC: ER 18:14 → ERHOLD 20:30 → 4TH 21:55
PROVIDERS: ADMIT Internal Medicine; ATTEND Family Medicine
DX: N17.9 Acute kidney failure, unspecified (principal); M62.82 Rhabdomyolysis; Z68.42 Body mass index [BMI] 45.0-49.9, adult; I24.8 Other forms of acute ischemic heart disease; E44.0 Moderate protein-calorie malnutrition; N39.0 Urinary tract infection, site not specified; E87.4 Mixed disorder of acid-base balance; E86.0 Dehydration; E66.01 Morbid (severe) obesity due to excess calories; D72.829 Elevated white blood cell count, unspecified; T39.315A Adverse effect of propionic acid derivatives, initial encounter; R01.1 Cardiac murmur, unspecified; I35.0 Nonrheumatic aortic (valve) stenosis; E87.6 Hypokalemia; E83.39 Other disorders of phosphorus metabolism; E78.5 Hyperlipidemia, unspecified; B95.2 Enterococcus as the cause of diseases classified elsewhere; E83.42 Hypomagnesemia; M19.90 Unspecified osteoarthritis, unspecified site; Z79.1 Long term (current) use of non-steroidal anti-inflammatories (NSAID); Z88.0 Allergy status to penicillin; Z88.2 Allergy status to sulfonamides
CPT/HCPCS: 36415; 71045; 71046; 74176; 76377; 76770; 80048; 80053; 80069; 80076; 81003; 81015; 82550; 82553; 82570; 82805; 82962; 83036; 83605; 83690; 83735; 83880; 83970; 84100; 84132; 84145; 84156; 84443; 84484; 84550; 85025; 85610; 85730; 86038; 86147; 86160; 86225; 86235; 86430; 87040; 87077; 87086; 87088; 87186; 93005; 93306; 96361; 96365; 96366; 96375; 99285; J0692; J1650; J3475; J7030

== ENCOUNTER 2018-09-09 12:32 | Inpatient (IN) | payer OTHER, MEDICARE ==
--- NOTE | 2018-09-09 13:53 | EKG ---
Test Date: 2018-09-09 Test Time: 13:29:40 Sales Audit Clerk: ULISES MEASUREMENT RESULTS: Intervals: Rate: 105 NV: 168 QRSD: 92 QT: 344 QTc: 454 [place]: P: 53 NV: 168 QRS: 64 T: 49 INTERPRETIVE STATEMENTS: Sinus tachycardia Otherwise normal ECG Compared to ECG 07/01/2018 19:10:55 Sinus rhythm no longer present Atrial premature complex(es) no longer present Electronically Signed On 09-09-18 13:53:00 CDT by Randy Jenkins
--- NOTE | 2018-09-09 14:22 | RAD REPORT ---
EXAM DESCRIPTION: CT - Head Brain Wo Cont - 09/09/2018 2:14 pm CLINICAL HISTORY: general weakness Drowsiness, fall, head injury COMPARISON: No comparisons TECHNIQUE: All CT scans are performed using dose optimization technique as appropriate and may inclu de automated exposure control or mA/KV adjustment according to patient size. FINDINGS: No intracranial hemorrhage, hydrocephalus or extra-axial fluid collection.No areas of brai n edema or evidence of midline shift. The paranasal sinuses and mastoids are clear. The calvarium is intact. IMPRESSION: No acute intracranial abnormality.
[2018-09-09 14:28] LABS: Absolute Lymphocytes (CBC) 1.7 K/uL (0.7-4.9); Absolute Monocytes 1.8 K/uL (0.1-1.3); Absolute Neutrophil 13.9 K/uL (1.8-8.0); Basophils % 0.3 % (0-1.3); Hematocrit 35.4 % (39.6-49.0); Lymphocytes % 9.9 % (15.3-44.8); MCH 30.2 pg (27.0-35.0); MPV 7.7 fL (7.6-11.3); Monocytes % 10.4 % (3.3-12.3); RBC Red Blood Cell Count 3.98 M/uL (4.33-5.43)
--- NOTE | 2018-09-09 14:36 | RAD REPORT ---
EXAM DESCRIPTION: RAD - Chest Single View - 09/09/2018 2:30 pm CLINICAL HISTORY: general weakness Chest pain. COMPARISON: Chest Single View dated 07/01/2018; Chest Pa And Lat (2 Views) dated 07/01/2018 FINDINGS: Portable technique limits examination quality. The lungs are grossly clear. The heart is normal in size. No displaced fractures. IMPRESSION: No acute intrathoracic process suspected.
[2018-09-09 14:39] LABS: Protime INR 1.18
[2018-09-09 15:09] LABS: Albumin 3.3 g/dL (3.4-5.0); Bilirubin Direct 0.1 mg/dL (0-0.2); Bilirubin Total 0.5 mg/dL (0.2-1.0); Magnesium 2.4 mg/dL (1.8-2.4); Potassium 3.4 mmol/L (3.5-5.1); Protein, Total 7.7 g/dL (6.4-8.2)
[2018-09-09] MEDS ORDERED: NA CHLORIDE 0.9% 500 ML ONE (15:09)
[2018-09-09 15:12] LABS: Troponin (Emerg Dept Use Only) 1.33 ng/mL (0.0-0.045)
[2018-09-09 15:14] LABS: Urine Blood 2+ (NEG); Urine Glucose NEGATIVE (NEG); Urine Protein 2+ (NEG); Urine Specific Gravity >1.030 (1.005-1.030)
[2018-09-09 15:23] LABS: Urine Amorphous Sediment 3+ /HPF (NONE SEEN); Urine Bacteria >50 /HPF (NONE SEEN); Urine Coarse Granular Casts >10 /LPF (NONE SEEN); Urine Culture Reflex Order REFLEXED
--- NOTE | 2018-09-09 16:24 | EDPHYS ---
Physician Documentation [facility] Name: Jamie Mistry Age: 72 yrs Sex: Male : 1945 Arrival Date: 09/09/2018 Time: 12:34 Bed 25 Private MD: ED Physician Rafael Phillips HPI: 09/09 13:15 This 72 yrs old Male presents to ER via Ambulatory with complaints of Urinary cp Retention, Decreased Appetite, Repeated Falls. 13:15 The patient's problem is reported as weakness, that is generalized. cp 13:15 Onset: The symptoms/episode began/occurred last week. Duration: The episode is cp continuous. 13:15 Context: occurred at home. Associated signs and symptoms: Pertinent positives: cp decreased urinary output, Pertinent negatives: abdominal pain, chest pain, headache, palpitations, vomiting. Severity of symptoms: in the emergency department the symptoms are unchanged despite home interventions. Patient's baseline: Neuro: alert and fully oriented, Motor: no deficits, Ambulation: walks without assistance, Speech: normal. 13:15 Patient reports multiple falls over since Saturday after becoming weak in the legs. cp Historical: - Allergies: 12:43 PENICILLINS; jl7 12:43 Sulfa (Sulfonamide Antibiotics); jl7 - PMHx: 12:43 Hypertension; jl7 - PSHx: 12:43 Cholecystectomy; Appendectomy; jl7 - Immunization history:: Adult Immunizations up to date. - Social history:: Smoking status: Patient/guardian denies using tobacco. - Ebola Screening: : No symptoms or risks identified at this time. ROS: 13:20 Constitutional: Negative for body aches, chills, fever, poor PO intake. cp 13:20 Eyes: Negative for injury, pain, redness, and discharge. cp 13:20 ENT: Negative for drainage from ear(s), ear pain, sore throat, difficulty swallowing, difficulty handling secretions. 13:20 Cardiovascular: Negative for chest pain, palpitations. 13:20 Respiratory: Negative for cough, shortness of breath, wheezing. 13:20 Abdomen/GI: Negative for abdominal pain, nausea, vomiting, and diarrhea, anorexia, black/tarry stool, rectal bleeding. 13:20 Back: Negative for pain at rest, pain with movement, radiated pain. 13:20 : Positive for difficulty urinating, Negative for burning with urination, testicular pain 13:20 MS/extremity: Negative for injury or acute deformity. 13:20 Skin: Negative for cellulitis, rash. 13:20 Neuro: Positive for general weakness, Negative for altered mental status, dizziness, headache, loss of consciousness, syncope, near syncope. 13:20 All other systems are negative. Exam: 13:30 Constitutional: The patient appears in no acute distress, alert, awake, cp non-diaphoretic, non-toxic, well developed, well nourished, obese. 13:30 Head/Face: Normocephalic, atraumatic. Eyes: Pupils equal round and reactive to light, cp extra-ocular motions intact. Lids and lashes normal. Conjunctiva and sclera are non-icteric and not injected. Cornea within normal limits. Periorbital areas with no swelling, redness, or edema. ENT: Nares patent. No nasal discharge, no septal abnormalities noted. Tympanic membranes are normal and external auditory canals are clear. Oropharynx with no redness, swelling, or masses, exudates, or evidence of obstruction, uvula midline. Mucous membranes moist. Neck: Trachea midline, no thyromegaly or masses palpated, and no cervical lymphadenopathy. Supple, full range of motion without nuchal rigidity, or vertebral point tenderness. No Meningismus. 13:30 Chest/axilla: Inspection: normal, Palpation: is normal, no crepitus, no tenderness. 13:30 Cardiovascular: Rate: tachycardic, Rhythm: regular, Pulses: Pulses are 2+ in right radial artery and left radial artery. Edema: mild bilateral lower legs, JVD: is not appreciated. 13:30 Respiratory: the patient does not display signs of respiratory distress, Respirations: normal, no use of accessory muscles, no retractions, no splinting, no tachypnea, labored breathing, is not present, Breath sounds: are clear throughout, no decreased breath sounds, no stridor, no wheezing. 13:30 Abdomen/GI: Inspection: obese Bowel sounds: active, all quadrants, Palpation: abdomen is soft and non-tender, in all quadrants, rebound tenderness, is not appreciated, voluntary guarding, is not appreciated, involuntary guarding, is not appreciated. 13:30 Back: pain, is absent, ROM is normal. 13:30 Skin: cellulitis, is not appreciated, no rash present. 13:30 Neuro: Orientation: to person, place \T\ time. Mentation: is normal, Cerebellar function: is grossly normal, Motor: moves all fours, strength is normal, Sensation: no obvious gross deficits. 13:35 ECG was reviewed by the Attending Physician. cp 14:50 Radiologist reports: no acute findings cp Vital Signs: 12:43 BP 94 / 83; Pulse 103; Resp 20; Temp 99.2; Pulse Ox 98% ; Weight 150.59 kg; Height 6 jl7 ft. 0 in. (182.88 cm); Pain 0/10; 13:12 BP 115 / 54; Pulse 106; Resp 24; Pulse Ox 98% on R/A; aj1 14:39 BP 102 / 50; Pulse 105; Resp 25; Pulse Ox 95% on R/A; aj1 15:20 BP 101 / 48; Pulse 99; Resp 23; Pulse Ox 95% on R/A; aj1 16:20 BP 132 / 82; Pulse 100; Resp 20; Pulse Ox 99% on R/A; aj1 17:30 BP 112 / 65; Pulse 104; Resp 20; Pulse Ox 95% on R/A; aj1 18:43 BP 121 / 65; Pulse 91; Resp 20; Pulse Ox 95% on R/A; aj1 12:43 Body Mass Index 45.03 (150.59 kg, 182.88 cm) jl7 MDM: 12:50 Patient medically screened. cp 14:00 Differential diagnosis: metabolic disorder, drug effects, cardiac arrythmia, acute IL, cp dehydration, renal failure. 16:00 Data reviewed: vital signs, nurses notes, lab test result(s), EKG, radiologic studies, cp plain films, ultrasound, and as a result, I will admit patient. 16:00 Test interpretation: by ED physician or midlevel provider: ECG, plain radiologic cp studies. Response to treatment: the patient's symptoms have mildly improved after treatment. 16:20 Physician consultation: Oliverio Cho MD was called at 16:20, was contacted at 16:20, regarding admission, to the telemetry unit. patient's condition. 09/09 13:13 Order name: Basic Metabolic Panel cp 09/09 13:13 Order name: CBC with Diff cp 09/09 13:13 Order name: LFT's cp 09/09 13:13 Order name: Magnesium cp 09/09 13:13 Order name: NT PRO-BNP cp 09/09 13:13 Order name: PT-INR cp 09/09 13:13 Order name: Troponin (emerg Dept Use Only) cp 09/09 13:13 Order name: Urine Microscopic Only; Complete Time: 15:32 cp 09/09 15:42 Interpretation: Normal except: UWBC >50; URBC 10-20; UBACT >50; SQEPI 10-20; AMORPH 3+. cp 09/09 13:13 Order name: Blood Culture Adult (2) cp 09/09 13:13 Order name: Lactate; Complete Time: 14:47 cp 09/09 15:00 Interpretation: LAC 1.7; Reviewed. cp 09/09 13:13 Order name: Procalcitonin; Complete Time: 15:47 cp 09/09 15:47 Interpretation: Abnormal: Procalcitonin 13.73. 09/09 13:13 Order name: Basic Metabolic Panel; Complete Time: 15:32 EDMS 09/09 15:32 Interpretation: Normal except: NA 133; K 3.4; GLUC 132; BUN 43; CRE 3.10; GFR 20. cp 09/09 13:13 Order name: CBC with Automated Diff; Complete Time: 14:47 EDMS 09/09 14:47 Interpretation: Normal except: WBC 17.6; RBC 3.98; HGB 12.0; HCT 35.4; MALDONADO% 79.4; LYM% cp 9.9; NEUT A 13.9; MNA 1.8. 09/09 13:13 Order name: Liver (Hepatic) Function; Complete Time: 15:32 EDMS 09/09 15:42 Interpretation: Normal except: AST 310; ALT 81; ALB 3.3; GLOB 4.4; A/G 0.8. cp 09/09 13:13 Order name: XRAY Chest (1 view); Complete Time: 14:47 cp 09/09 13:13 Order name: Magnesium; Complete Time: 15:32 EDMS 09/09 13:13 Order name: NT PRO-BNP; Complete Time: 15:32 EDMS 09/09 15:47 Interpretation: Abnormal: NT PRO-BNP 3445. cp 09/09 13:13 Order name: Protime (+INR); Complete Time: 14:47 EDMS 09/09 15:48 Interpretation: Abnormal: PT 13.9. cp 09/09 13:13 Order name: Troponin (Emerg Dept Use Only); Complete Time: 15:32 EDMS 09/09 15:33 Interpretation: Abnormal: TROPED 1.33. cp 09/09 13:46 Order name: CT Head Brain wo Cont; Complete Time: 14:47 cp 09/09 14:59 Order name: Urine Dipstick--Ancillary (enter results) bd 09/09 15:00 Order name: Urine Dipstick-Ancillary; Complete Time: 15:32 EDMS 09/09 15:48 Interpretation: Normal except: USPGR >1.030; UBLD 2+; UPROT 2+; UESTR TRACE. cp 09/09 15:25 Order name: Urine Culture EDMS 09/09 15:44 Order name: US Abdomen Limited: liver and gallbladder; Complete Time: 17:10 cp 09/09 17:11 Interpretation: Report reviewed. cp 09/09 13:13 Order name: EKG; Complete Time: 13:14 cp 09/09 13:13 Order name: Cardiac monitoring; Complete Time: 14:52 cp 09/09 13:13 Order name: EKG - Nurse/Tech; Complete Time: 14:52 cp 09/09 13:13 Order name: IV Saline Lock; Complete Time: 14:52 cp 09/09 13:13 Order name: Labs collected and sent; Complete Time: 14:52 cp 09/09 13:13 Order name: O2 Per Protocol; Complete Time: 14:52 cp 09/09 13:13 Order name: O2 Sat Monitoring; Complete Time: 14:52 cp 09/09 13:13 Order name: Urine Dipstick-Ancillary (obtain specimen); Complete Time: 14:59 cp 09/09 16:20 Order name: Morales; Complete Time: 17:43 cp EC:35 Rate is 105 beats/min. Rhythm is regular. NM interval is normal. QRS interval is cp normal. QT interval is normal. Interpreted by me. Reviewed by me. Administered Medications: 15:16 Drug: NS 0.9% 500 ml Route: IV; Rate: bolus; Site: right antecubital; aj1 17:41 Follow up: IV Status: Completed infusion; IV Intake: 500ml aj1 16:46 Drug: LevaQUIN 500 mg Volume: 100 ml; Route: IVPB; Infused Over: 60 mins; Site: right aj1 forearm; 17:42 Follow up: IV Status: Completed infusion; IV Intake: 100ml aj1 16:46 Drug: Cefepime 2 grams Route: IVPB; Rate: 200 ml/hr; Infused Over: 30 mins; Site: right aj1 forearm; 17:42 Follow up: IV Status: Completed infusion aj1 16:47 Drug: Aspirin Chewable Tablet 324 mg Route: PO; aj1 17:43 Follow up: Response: No adverse reaction aj1 16:47 Drug: NS 0.9% 1000 ml Route: IV; Rate: 1 bolus; Site: right forearm; aj1 19:28 Follow up: IV Status: Completed infusion; IV Intake: 1000ml aj1 16:52 Not Given (Physician Discretion): Potassium Effervescent Tablet 25 mEq PO once; aj1 dissolve in 4 ounces of water or juice 17:40 Drug: NS 0.9% 1000 ml Route: IV; Rate: 100 ml/hr; Site: right forearm; aj1 19:48 Follow up: IV Status: Infusion continued upon admission aj1 18:20 Drug: fentaNYL (PF) 25 mcg Route: IVP; Site: right forearm; aj1 19:28 Follow up: Response: No adverse reaction; Pain is decreased aj1 19:27 Drug: NS 0.9% 500 ml Route: IV; Rate: bolus; Site: right forearm; aj1 19:48 Follow up: IV Status: Infusion continued upon admission aj1 Disposition: 09/10 09:01 Co-signature as Attending Physician, Rafael Phillips MD I agree with the assessment and [facility] plan of care. Disposition: 09/09/18 16:23 Hospitalization ordered by Oliverio Cho for Inpatient Admission. Preliminary diagnosis are Other sepsis, Acute kidney failure, unspecified, Urinary tract infection, site not specified. - Bed requested for Telemetry/MedSurg (Inpatient). - Status is Inpatient Admission. aj1 - Condition is Stable. - Problem is new. - Symptoms have improved. UTI on Admission? Yes Signatures: Dispatcher [employer] EDMS Hamida Arajuo RN RN aj1 Leatha Marquez RN RN dw Anderson, Corey, MD MD cha Page, Corey, PA PA cp Leal, Jahala, RN RN jl7 Corrections: (The following items were deleted from the chart) 09/09 14:47 14:47 Normal except: WBC 17.6; RBC 3.98; HGB 12.0; HCT 35.4; MALDONADO% 79.4; LYM% 9.9; NEUT cp A 13.9. cp 15:42 15:32 Normal except: UWBC >50; URBC 10-20; UBACT >50; SQEPI 10-20. cp cp 18:22 16:23 Hospitalization Ordered by Oliverio Cho MD for Inpatient Admission. Preliminary dw diagnosis is Other sepsis; Acute kidney failure, unspecified; Urinary tract infection, site not specified. Bed requested for Telemetry/MedSurg (Inpatient). Status is Inpatient Admission. Condition is Stable. Problem is new. Symptoms have improved. UTI on Admission? Yes. cp 19:48 18:22 09/09/2018 16:23 Hospitalization Ordered by Oliverio Cho MD for Inpatient aj1 Admission. Preliminary diagnosis is Other sepsis; Acute kidney failure, unspecified; Urinary tract infection, site not specified. Bed requested for Telemetry/MedSurg (Inpatient). Status is Inpatient Admission. Condition is Stable. Problem is new. Symptoms have improved. UTI on Admission? Yes. dw
--- NOTE | 2018-09-09 16:24 | ER ---
Nurse's Notes [facility] Name: Jamie Mistry Age: 72 yrs Sex: Male : 1945 Arrival Date: 09/09/2018 Time: 12:34 Bed 25 [facility] MD: Diagnosis: Other sepsis;Acute kidney failure, unspecified;Urinary tract infection, site not specified Presentation: 09/09 12:40 Presenting complaint: Patient states: Inability to void for 24 hours, feeling weak just jl7 prior to arrival, fell on Saturday and Saturday. Transition of care: patient was not received from another setting of care. Onset of symptoms was September 08, 2018. Risk Assessment: Do you want to hurt yourself or someone else? Patient reports no desire to harm self or others. Initial Sepsis Screen: Does the patient meet any 2 criteria? No. Patient's initial sepsis screen is negative. Does the patient have a suspected source of infection? No. Patient's initial sepsis screen is negative. Care prior to arrival: None. 12:40 Method Of Arrival: Ambulatory [facility] 12:40 Acuity: LILI 3 jl7 Historical: - Allergies: 12:43 PENICILLINS; jl7 12:43 Sulfa (Sulfonamide Antibiotics); jl7 - PMHx: 12:43 Hypertension; jl7 - PSHx: 12:43 Cholecystectomy; Appendectomy; jl7 - Immunization history:: Adult Immunizations up to date. - Social history:: Smoking status: Patient/guardian denies using tobacco. - Ebola Screening: : No symptoms or risks identified at this time. Screenin:12 Abuse screen: Denies threats or abuse. Denies injuries from another. Nutritional aj1 screening: No deficits noted. Tuberculosis screening: No symptoms or risk factors identified. 19:30 Fall Risk No fall in past 12 months (0 pts). Secondary diagnosis (15 points) weakness. aj1 IV access (20 points). Ambulatory Aid- None/Bed Rest/Nurse Assist (0 pts). Gait- Weak (10 pts.). Mental Status- Oriented to own ability (0 pts). Total Ngo Fall Scale indicates Low Risk Score (25-44 pts). As available Patient and Family Educated on Fall Prevention Program and strategies. Assessment: 13:12 General: Appears in no apparent distress. uncomfortable, Behavior is calm, cooperative, aj1 appropriate for age. Pain: Denies pain. Neuro: Level of Consciousness is awake, alert, obeys commands, Oriented to person, place, time, situation, Reports generalized weakness, falling frequently at home. Cardiovascular: Patient's skin is warm and dry. Respiratory: Reports shortness of breath States that he has felt short of breath for the past year and this is his normal shortness of breath Airway is patent Respiratory effort is even, unlabored. GI: Abdomen is obese. : Reports inability to void, for the past 24 hours. States that he has felt no urge to urinate. EENT: No signs and/or symptoms were reported regarding the EENT system. Derm: No signs and/or symptoms reported regarding the dermatologic system. Skin is pink, warm \T\ dry. normal. Musculoskeletal: No signs and/or symptoms reported regarding the musculoskeletal system. Circulation, motion, and sensation intact. 14:39 Reassessment: Patient appears in no apparent distress at this time. No changes from aj1 previously documented assessment. Patient and/or family updated on plan of care and expected duration. Pain level reassessed. Patient is alert, oriented x 3, equal unlabored respirations, skin warm/dry/pink. 15:21 Reassessment: Patient and/or family updated on plan of care and expected duration. Pain aj1 level reassessed. General: Appears in no apparent distress. comfortable, Behavior is calm, cooperative, appropriate for age. Pain: Denies pain. Neuro: Level of Consciousness is awake, alert, obeys commands, Oriented to person, place, time, situation. Cardiovascular: Patient's skin is warm and dry. Respiratory: Airway is patent Respiratory effort is even, unlabored, Respiratory pattern is regular, symmetrical. GI: Abdomen is obese. Derm: Skin is pink, warm \T\ dry. normal. Musculoskeletal: Circulation, motion, and sensation intact. 16:20 Reassessment: Patient appears in no apparent distress at this time. No changes from aj1 previously documented assessment. Patient and/or family updated on plan of care and expected duration. Pain level reassessed. Patient is alert, oriented x 3, equal unlabored respirations, skin warm/dry/pink. 17:20 Reassessment: Patient and/or family updated on plan of care and expected duration. Pain aj1 level reassessed. General: Appears in no apparent distress. comfortable, Behavior is calm, cooperative, appropriate for age. Pain: Denies pain. Neuro: Level of Consciousness is awake, alert, obeys commands. Cardiovascular: Patient's skin is warm and dry. Respiratory: Airway is patent Respiratory effort is even, unlabored, Respiratory pattern is regular, symmetrical. GI: Abdomen is obese. : Reports inability to void. Derm: Skin is pink, warm \T\ dry. normal. Musculoskeletal: Circulation, motion, and sensation intact. 18:20 Reassessment: Patient appears in no apparent distress at this time. No changes from aj1 previously documented assessment. Patient and/or family updated on plan of care and expected duration. Pain level reassessed. Patient is alert, oriented x 3, equal unlabored respirations, skin warm/dry/pink. 19:29 Reassessment: Patient and/or family updated on plan of care and expected duration. Pain aj1 level reassessed. General: Appears in no apparent distress. comfortable, Behavior is calm, cooperative, appropriate for age. Neuro: Level of Consciousness is awake, alert, obeys commands, Oriented to person, place, time, situation. Cardiovascular: Patient's skin is warm and dry. Respiratory: Airway is patent Respiratory effort is even, unlabored, Respiratory pattern is regular, symmetrical. GI: Abdomen is obese. :. Derm: Skin is pink, warm \T\ dry. normal. Musculoskeletal: Circulation, motion, and sensation intact. Vital Signs: 12:43 BP 94 / 83; Pulse 103; Resp 20; Temp 99.2; Pulse Ox 98% ; Weight 150.59 kg; Height 6 jl7 ft. 0 in. (182.88 cm); Pain 0/10; 13:12 BP 115 / 54; Pulse 106; Resp 24; Pulse Ox 98% on R/A; aj1 14:39 BP 102 / 50; Pulse 105; Resp 25; Pulse Ox 95% on R/A; aj1 15:20 BP 101 / 48; Pulse 99; Resp 23; Pulse Ox 95% on R/A; aj1 16:20 BP 132 / 82; Pulse 100; Resp 20; Pulse Ox 99% on R/A; aj1 17:30 BP 112 / 65; Pulse 104; Resp 20; Pulse Ox 95% on R/A; aj1 18:43 BP 121 / 65; Pulse 91; Resp 20; Pulse Ox 95% on R/A; aj1 12:43 Body Mass Index 45.03 (150.59 kg, 182.88 cm) jl7 ED Course: 12:34 Patient arrived in ED. as 12:42 Triage completed. jl7 12:43 Arm band placed on right wrist. jl7 12:49 Rafael Shen PA is PHCP. cp 12:50 Rafael Phillips MD is Attending Physician. cp 12:51 Hamida Araujo, RN is Primary Nurse. aj1 13:12 Patient has correct armband on for positive identification. Bed in low position. Call aj1 light in reach. Side rails up X 1. 13:12 No provider procedures requiring assistance completed. aj1 13:33 EKG done, by registered veterinary technician. reviewed by Rafael MORENO. at1 14:00 Missed attempt(s): 22 gauge in left forearm. antecubital area. 24 gauge in right hand. jp3 Bleeding controlled, band aid applied, catheter tip intact. 14:05 Inserted saline lock: 22 gauge in right antecubital area, using aseptic technique. aj1 Blood collected. 14:13 CT completed. Patient tolerated procedure well. Patient moved to CT via stretcher. Patient moved back from CT. 14:14 CT Head Brain wo Cont In Process Unspecified. EDMS 14:29 X-ray completed. Portable x-ray completed in exam room. Patient tolerated procedure mh1 poorly. Patient moved back from radiology. 14:30 XRAY Chest (1 view) In Process Unspecified. EDMS 14:58 Urine collected: clean catch specimen, clear, prerna colored, Amount Voided: 120mL. jp3 14:59 Basic Metabolic Panel Sent. jp3 14:59 CBC with Diff Sent. jp3 14:59 LFT's Sent. jp3 14:59 Magnesium Sent. jp3 14:59 Troponin (emerg Dept Use Only) Sent. jp3 14:59 PT-INR Sent. jp3 14:59 NT PRO-BNP Sent. jp3 16:21 Oliverio Cho MD is Hospitalizing Provider. cp 16:29 US Abdomen Limited: liver and gallbladder In Process Unspecified. EDMS 17:38 Morales cath inserted, using sterile technique, 12 Fr., by md, balloon inflated, to aj1 gravity drainage, returned cloudy urine. Patient tolerated well. 19:30 Patient admitted, IV remains in place. aj1 19:44 Report given to Calista Falk RN on 2nd floor. aj1 Administered Medications: 15:16 Drug: NS 0.9% 500 ml Route: IV; Rate: bolus; Site: right antecubital; aj1 17:41 Follow up: IV Status: Completed infusion; IV Intake: 500ml aj1 16:46 Drug: LevaQUIN 500 mg Volume: 100 ml; Route: IVPB; Infused Over: 60 mins; Site: right aj1 forearm; 17:42 Follow up: IV Status: Completed infusion; IV Intake: 100ml aj1 16:46 Drug: Cefepime 2 grams Route: IVPB; Rate: 200 ml/hr; Infused Over: 30 mins; Site: right aj1 forearm; 17:42 Follow up: IV Status: Completed infusion aj1 16:47 Drug: Aspirin Chewable Tablet 324 mg Route: PO; aj1 17:43 Follow up: Response: No adverse reaction aj1 16:47 Drug: NS 0.9% 1000 ml Route: IV; Rate: 1 bolus; Site: right forearm; aj1 19:28 Follow up: IV Status: Completed infusion; IV Intake: 1000ml aj1 16:52 Not Given (Physician Discretion): Potassium Effervescent Tablet 25 mEq PO once; aj1 dissolve in 4 ounces of water or juice 17:40 Drug: NS 0.9% 1000 ml Route: IV; Rate: 100 ml/hr; Site: right forearm; aj1 19:48 Follow up: IV Status: Infusion continued upon admission aj1 18:20 Drug: fentaNYL (PF) 25 mcg Route: IVP; Site: right forearm; aj1 19:28 Follow up: Response: No adverse reaction; Pain is decreased aj1 19:27 Drug: NS 0.9% 500 ml Route: IV; Rate: bolus; Site: right forearm; aj1 19:48 Follow up: IV Status: Infusion continued upon admission aj1 Intake: 17:41 IV: 500ml; Total: 500ml. aj1 17:42 IV: 100ml; Total: 600ml. aj1 19:28 IV: 1000ml; Total: 1600ml. aj1 Outcome: 16:23 Decision to Hospitalize by Provider. cp 19:46 Admitted to Tele accompanied by tech, via wheelchair, with chart. aj1 19:46 Condition: stable 19:46 Discharge instructions given to patient, Instructed on the need for admit, Demonstrated understanding of instructions. 19:48 Patient left the ED. aj1 Signatures: Dispatcher [employer] EDHamida Cornejo, RN RN aj1 Gail Lee 1 Olya Mosher Amelia as Gonzales, Amanda, ordnance equipment worker EKG Tat1 Raafel Shen PA PA cp Leal, Jahala, RN RN jl7 Brennan Whitaker jp3
[2018-09-09] MEDS ORDERED: ASPIRIN 81 MG CHEWABLE TABLET ONE (16:39)
[2018-09-09] MEDS ORDERED: Levofloxacin500mg IV 500 MG/100 ML BAG IV ONE (16:39)
[2018-09-09] MEDS ORDERED: CEFOXITIN/SWI 1gm 2 GM/20 ML SYR ONE (16:40)
[2018-09-09] MEDS ORDERED: NA CHLORIDE 0.9% 2,000 ML ONE (16:40)
--- NOTE | 2018-09-09 16:51 | RAD REPORT ---
EXAM DESCRIPTION: US - Abdomen Exam Limited - 09/09/2018 4:28 pm CLINICAL HISTORY: Abdominal pain. COMPARISON: June 2018 cat scan FINDINGS: The echotexture of the liver appears normal. Echogenic areas are visualized within the jameson er which are ill-defined. Biliary tree is not well visualized but probably is normal caliber. . IMPRESSION: Ill-defined echogenic areas within the liver which are ill-defined. These probably repre sent normal fat within the fissures. Less likely consideration is that these represent air. It is rec ommended that patient have an unenhanced CT scan of the abdomen for further evaluation
[2018-09-09] MEDS ORDERED: FENTANYL CITR 100 MCG/2 ML ONE (18:32)
[2018-09-09 21:12] LABS: CKMB Creatine Kinase MB 14.2 ng/mL (0.3-3.6); Troponin I 1.27 ng/mL (0.0-0.045)
[2018-09-09] MEDS: ALBUTEROL 2.5 MG/3 ML NEB SOL NEB SCH (21:21)
[2018-09-09] MEDS: NA CHLORIDE 0.9% 1,000 ML IV SCH (23:30)
[2018-09-10] MEDS: ALBUTEROL 2.5 MG/3 ML NEB SOL NEB SCH ×4 (02:22→20:17)
[2018-09-10] MEDS: NA CHLORIDE 0.9% 1,000 ML IV SCH ×2 (06:31→20:04)
[2018-09-10 06:44] LABS: Absolute Lymphocytes (CBC) 2.3 K/uL (0.7-4.9); Absolute Monocytes 1.9 K/uL (0.1-1.3); Absolute Neutrophil 12.7 K/uL (1.8-8.0); Basophils % 0.2 % (0-1.3); Lymphocytes % 13.7 % (15.3-44.8); MCH 29.9 pg (27.0-35.0); RBC Red Blood Cell Count 3.82 M/uL (4.33-5.43)
[2018-09-10 07:05] LABS: Albumin 2.9 g/dL (3.4-5.0); Bilirubin Total 0.3 mg/dL (0.2-1.0); Potassium 3.4 mmol/L (3.5-5.1); Protein, Total 7.1 g/dL (6.4-8.2)
--- NOTE | 2018-09-10 10:08 | P.HP ---
Certification for Inpatient Patient admitted to: Observation With expected LOS: <2 Midnights Patient will require the following post-hospital care: None Practitioner: I am a practitioner with admitting privileges, knowledge of patient current condition, hospital course, and medical plan of care. Services: Services provided to patient in accordance with Admission requirements found in Title 42 Section 412.3 of the Code of Federal Regulations Patient History Date of Service: 09/09/18 Reason for admission: RIRI History of Present Illness: Patient is a 72yo who was admitted to the hospital decreased appetite, multiple falls, and patient was found to be in acute renal failure. Patient was started on IV hydration. Patient has similar episode occur a few weeks prior. Patient also had a urinary tract infection as his UA appears to have increased white blood cell and bacteria. Patient also has elevated AST and ALT along with elevated troponin and CPK and CPKMB. Most this is probably related to patient' s renal injury and elevation and muscle enzymes because of the falls. Patient will be admitted to the hospital for IV hydration and further workup. Allergies Penicillins Allergy (Verified 07/01/18 21:15) Rash Sulfa (Sulfonamide Antibiotics) Allergy (Verified 07/01/18 21:15) Rash Home Medications: Brimonidine Tartrate/Timolol [Combigan 0.2%-0.5% Eye Drops] 1 gtt LEFT EYE BID 07/01/18 Travoprost (Benzalkonium) [Travatan 0.004% Eye Drop] 1 gtt OP BEDTIME 07/01/18 hydroCHLOROthiazide [Hydrochlorothiazide] 1 tab PO DAILY 07/01/18 Candesartan Cilexetil 1 tab PO DAILY 09/09/18 - Past Medical/Surgical History Has patient received pneumonia vaccine in the past: Yes Diabetic: No -: Morbid obesity -: Hypertension -: Glaucoma -: Cholecystectomy -: Appendectomy - Family History Mother Medical History: Hypertension Notes: macular degenration Sister Medical History: Cancer Notes: breast cancer, macular degenration Father Medical History: Lung disease, Cancer Notes: cataract, aaron - Social History Smoking Status: Never smoker Alcohol use: No CD- Drugs: No Caffeine use: Yes Place of Residence: Home Review of Systems 10-point ROS is otherwise unremarkable Physical Examination - Vital Signs Temperature: 100 F Blood Pressure: 121/65 Pulse: 103 Respirations: 18 Pulse Ox (%): 94 - Physical Exam General: Alert, In no apparent distress, Oriented x3 HEENT: Atraumatic, PERRLA, Mucous membr. moist/pink, EOMI, Sclerae nonicteric Neck: Supple, 2+ carotid pulse no bruit, No LAD, Without JVD or thyroid abnormality Respiratory: Clear to auscultation bilaterally, Normal air movement Cardiovascular: Regular rate/rhythm, Normal S1 S2, Systolic murmur Gastrointestinal: Normal bowel sounds, Soft and benign, Non-distended, No tenderness Musculoskeletal: No clubbing, No swelling, Tenderness Integumentary: No rashes, No significant lesion, Other (Patient was bruising) Neurological: Normal tone, Sensation intact, Cranial nerves 3-12 intact, Normal affect, Abnormal gait, Abnormal strength Lymphatics: No axilla or inguinal lymphadenopathy - Studies Laboratory Data (last 24 hrs) 09/09/18 12:05: PT 13.9 H, INR 1.18 09/09/18 12:05: WBC 17.6 H, Hgb 12.0 L, Hct 35.4 L, Plt Count 226 09/09/18 12:05: Sodium 133 L, Potassium 3.4 L, BUN 43 H, Creatinine 3.10 H, Glucose 132 H, Magnesium 2.4, Total Bilirubin 0.5, AST 310 H*, ALT 81 H, Alkaline Phosphatase 105 Assessment & Plan - Problems (Diagnosis) (1) Elevated liver enzymes Current Visit: Yes Status: Acute (2) Elevated troponin Current Visit: Yes Status: Acute (3) Status post fall Current Visit: Yes Status: Acute (4) Acute renal injury Onset Date: 07/02/18 Current Visit: No Status: Acute (5) Dehydration Onset Date: 07/02/18 Current Visit: No Status: Acute (6) Leukocytosis Onset Date: 07/02/18 Current Visit: No Status: Acute Qualifiers: Leukocytosis type: unspecified Qualified Code(s): D72.829 - Elevated white blood cell count, unspecified (7) Rhabdomyolysis Onset Date: 07/02/18 Current Visit: No Status: Acute Qualifiers: Rhabdomyolysis type: non-traumatic Qualified Code(s): M62.82 - Rhabdomyolysis (8) Morbid obesity Onset Date: 07/02/18 Current Visit: No Status: Chronic (9) Elevated procalcitonin Current Visit: Yes Status: Acute (10) Elevated WBC count Current Visit: Yes Status: Acute (11) UTI (urinary tract infection) Current Visit: Yes Status: Acute - Plan Plan: 1. IV hydration 2. Physical therapy 3. Pain control 4. Monitor muscle enzymes and liver enzymes 5. Continue with antibiotics for UTI 6. Continue monitor white blood cell count 7. Monitor renal function 8. GI and DVT prophylaxis Discharge Plan: Home Plan to discharge in: Greater than 2 days - Advance Directives Does patient have a Living Will: No Does patient have a Durable POA for Healthcare: No - Code Status/Comfort Care Code Status Assessed: Yes Code Status: Full Code Critical Care: No Time Spent Managing PTS Care (In Minutes): 50
--- NOTE | 2018-09-10 15:31 | P.PN ---
Subjective Date of Service: 09/10/18 Chief Complaint: RIRI Patient seen and examined at bedside. No family at bedside. Chart reviewed and discussed with nursing staff. Patient reports no improvement with weakness , states he still feels off balance while trying to walk. It is a Morales in, states that he did have increased urge but was hard for him to urinate. Otherwise denies any abdominal pain, nausea, vomiting, chest pain, shortness breath any vision changes. Review of Systems As noted above Physical Examination - Vital Signs Temperature: 98.2 F Blood Pressure: 133/59 Pulse: 100 Respirations: 20 Pulse Ox (%): 98 - Physical Exam General: Alert, In no apparent distress, Obese HEENT: Atraumatic, PERRLA, EOMI Neck: Supple, JVD not distended Respiratory: Clear to auscultation bilaterally, Normal air movement Cardiovascular: Regular rate/rhythm, Normal S1 S2 Gastrointestinal: Normal bowel sounds, No tenderness Musculoskeletal: No tenderness Integumentary: No rashes Neurological: Normal speech, Normal tone, Normal affect - Studies Medications List Reviewed: Yes Assessment And Plan - Plan - Sepsis: Met sepsis criteria on admission with: Heart rate greater than 90, respiratory rate greater than 20, WBC count greater than 12,000. He also had elevated pro calcitonin. Possible source includes urine. Continue IV empiric antibiotics and IV hydration. Monitor a.m. labs He remains afebrile. - Rhabdomyolysis Trend CPK Continue IV hydration - Acute renal injury Improving creatinine. Continue IV hydration and continue to monitor via a.m. labs. Avoid nephrotoxic medications. - UTI (urinary tract infection) Urine without evidence of infection. Start IV levofloxacin as patient has penicillin allergy. Pending urine culture - Elevated liver enzymes Likely secondary to decreased volume status. Will continue to monitor. If continues to stay elevated, will get abdominal ultrasound for further evaluation. Did note normal alkaline phosphatase - Elevated troponin Likely secondary to decreased volumes status, acute renal failure, rhabdo. Continue IV hydration, monitor/trend - Status post fall/weakness Physical therapy ordered - Leukocytosis Improving. Likely secondary to urinary tract infection. Will continue to monitor DVT prophylaxis: Lovenox. Diet: Regular Disposition: Pending symptomatic improvement.
[2018-09-10] MEDS ORDERED: Levofloxacin500mg IV 500 MG/100 ML BAG IV ONE (17:00)
[2018-09-10] MEDS: ENOXAPARIN 30 MG/0.3 ML SQ SCH (17:34)
[2018-09-10] MEDS: HOME MED 1 EA UNK (Brimonidine Tartrate/Timolol [Combigan 0.2%-0.5% Eye Drops] 1 GTT) LEFT EYE SCH (20:03)
[2018-09-10] MEDS: HOME MED 1 EA UNK (Travoprost (Benzalkonium) [Travatan 0.004% Eye Drop] 1 GTT) OP SCH (20:03)
[2018-09-10] MEDS ORDERED: POTASSIUM CL SA 10 MEQ TAB PO ONE (20:10)
[2018-09-11] MEDS: ALBUTEROL 2.5 MG/3 ML NEB SOL NEB SCH ×4 (02:55→19:40)
[2018-09-11 06:26] LABS: Absolute Lymphocytes (CBC) 2.1 K/uL (0.7-4.9); Absolute Monocytes 1.2 K/uL (0.1-1.3); Absolute Neutrophil 6.7 K/uL (1.8-8.0); Basophils % 0.2 % (0-1.3); Eosinophils % 1.1 % (0-4.4); Hematocrit 30.7 % (39.6-49.0); Lymphocytes % 20.6 % (15.3-44.8); MCH 30.5 pg (27.0-35.0); MPV 8.2 fL (7.6-11.3); Monocytes % 11.6 % (3.3-12.3); RBC Red Blood Cell Count 3.45 M/uL (4.33-5.43)
[2018-09-11 07:27] LABS: Albumin 2.7 g/dL (3.4-5.0); Bilirubin Total 0.4 mg/dL (0.2-1.0); Potassium 3.3 mmol/L (3.5-5.1); Troponin I 0.34 ng/mL (0.0-0.045)
[2018-09-11] MEDS: HOME MED 1 EA UNK (Brimonidine Tartrate/Timolol [Combigan 0.2%-0.5% Eye Drops] 1 GTT) LEFT EYE SCH ×2 (09:00→20:12)
[2018-09-11] MEDS ORDERED: VALSARTAN 80 MG TAB PO SCH (09:00)
[2018-09-11] MEDS ORDERED: hydroCHLOROthiazide 25 MG TAB PO SCH (09:00)
[2018-09-11] MEDS ORDERED: POTASSIUM 25 MEQ EFFERV TAB PO ONE ×2 (09:21→21:00)
--- NOTE | 2018-09-11 10:11 | RAD REPORT ---
EXAM DESCRIPTION: CT - Abdomen Pelvis Wo Contrast - 09/11/2018 8:53 am CLINICAL HISTORY: Abdominal pain, abnormal liver function COMPARISON: CT imaging June 2018 TECHNIQUE: Axial [address] imaging of the abdomen and pelvis was performed without IV contrast. No IV contrast was given because of allergy, abnormal renal function, patient refusal or physician re quest. No oral contrast administered. All CT scans are performed using dose optimization technique as appropriate and may include automated exposure control or mA/KV adjustment according to patient size. FINDINGS: No suspicious findings in the lung bases. Liver size is normal. No nodular capsule or focal liver lesion. Attenuation is borderline fatty infil trated. No splenomegaly or focal splenic abnormality. No pancreatic or peripancreatic acute process. Cholecystectomy clips are present. No biliary tree dilatation. No hydronephrosis or suspicious renal mass. Nonspecific perinephric stranding is seen similar to comp katie. This is not regarded as significant. Urinary bladder is mostly contracted. Morales catheter is in place. Presence of the catheter limits ability to assess the bladder base/trigone region. Prostate gland is prominent projecting into the bladder base. Pattern is not substantially different from kristen rt interval study. No significant adrenal finding. Isodense renal masses and pyelonephritis cannot be excluded in the absence of IV contrast. No dilated bowel loops or bowel wall thickening. No free air, free fluid or inflammatory stranding. N o mass or bulky lymphadenopathy. Small bilateral fat filled inguinal hernias are present. There is si gnificant atrophy of the abdominal wall musculature. Small fat only umbilical hernia is present. Disc and bony degenerative change present. No pathologic bone process seen. IMPRESSION: Borderline fatty infiltration of the liver parenchyma. No focal liver lesion identifiabl e. Cholecystectomy change with no biliary tree dilatation or pancreatic abnormality. Urinary bladder is contracted limiting assessment. Morales catheter is in place further limiting assess ment of the bladder base and trigone. Prostate projects into the bladder base similar to June mirela ng. Full assessment is limited is the absence of IV contrast.
[2018-09-11] MEDS: ENOXAPARIN 30 MG/0.3 ML SQ SCH (10:33)
[2018-09-11] MEDS: NA CHLORIDE 0.9% 1,000 ML IV SCH (10:34)
--- NOTE | 2018-09-11 15:13 | P.PN ---
Subjective Date of Service: 09/11/18 Primary Care Provider: Dr. Joe Chief Complaint: RIRI Subjective: Improving Physical Examination - Vital Signs Temperature: 97.2 F Blood Pressure: 112/54 Pulse: 85 Respirations: 17 Pulse Ox (%): 96 - Physical Exam General: Alert, In no apparent distress, Oriented x3, Cooperative HEENT: Atraumatic Neck: Supple Respiratory: Clear to auscultation bilaterally, Normal air movement Cardiovascular: Normal pulses, Regular rate/rhythm Gastrointestinal: Normal bowel sounds, Soft and benign, Non-distended, No masses , No rebound, No guarding Musculoskeletal: No erythema, No tenderness, No warmth Integumentary: No tenderness/swelling, No erythema, No warmth, No cyanosis Neurological: Normal speech, Normal strength at 5/5 x4 extr, Normal tone, Normal affect - Studies Medications List Reviewed: Yes Assessment & Plan Discharge Plan: Home Plan to discharge in: 48 Hours Physician Review Additional Text: Impression: Acute renal failure secondary to rhabdomyolysis Multiple falls Hypokalemia Hypertension Anemia likely of chronic disease Elevated liver function with borderline fatty liver Obesity, BMI 45 Plan: Acute renal failure secondary to rhabdomyolysis: Continue with IV fluids. Nephrology has evaluated the patient and made recommendations. Will discontinue hydrochlorothiazide and Arb inhibitor. Will continue monitor levels closely. Encourage ambulation. Physical therapy to assess. Hypokalemia: Will monitor and replace appropriately. Multiple falls: Will have physical therapy assess ambulation. Fall precaution in place Hypertension: Hydrochlorothiazide and Arb inhibitor discontinued due to acute renal failure. Will monitor blood pressure without medication. Adjustments to medication will be required at discharge. Anemia likely of chronic disease: Will check iron and B12 studies. Will monitor closely. Elevated liver function with borderline fatty liver: Lifestyle modification education will be provided. Obesity, BMI 45: Will continue to address lifestyle modification education. Time Spent Managing Pts Care (In Minutes): 55
[2018-09-11] MEDS ORDERED: Levofloxacin 250mg IV 250 MG/50 ML BAG IV SCH (17:00)
[2018-09-11] MEDS: CARVEDILOL 3.125 MG TAB PO SCH ×2 (17:13→17:16)
[2018-09-11] MEDS ORDERED: CARVEDILOL 3.125 MG TAB PO SCH (18:00)
[2018-09-11] MEDS: HOME MED 1 EA UNK (Travoprost (Benzalkonium) [Travatan 0.004% Eye Drop] 1 GTT) OP SCH (20:13)
--- NOTE | 2018-09-11 21:12 | P.CNS ---
Primary Care Provider: Dr. Joe Chief Complaint: RIRI Allergies Penicillins Allergy (Verified 07/01/18 21:15) Rash Sulfa (Sulfonamide Antibiotics) Allergy (Verified 07/01/18 21:15) Rash Home Medications: Brimonidine Tartrate/Timolol [Combigan 0.2%-0.5% Eye Drops] 1 gtt LEFT EYE BID 07/01/18 Travoprost (Benzalkonium) [Travatan 0.004% Eye Drop] 1 gtt OP BEDTIME 07/01/18 hydroCHLOROthiazide [Hydrochlorothiazide] 1 tab PO DAILY 07/01/18 Candesartan Cilexetil 1 tab PO DAILY 09/09/18 - Past Medical/Surgical History Diabetic: No -: Morbid obesity -: Hypertension -: Glaucoma -: Cholecystectomy -: Appendectomy - Family History Mother Medical History: Hypertension Notes: macular degenration Sister Medical History: Cancer Notes: breast cancer, macular degenration Father Medical History: Lung disease, Cancer Notes: cataract, aaron - Social History Alcohol use: No CD- Drugs: No Caffeine use: Yes Place of Residence: Home Physical Examination Temp Pulse Resp BP Pulse Ox 97.8 F 81 17 109/53 L 96 09/11/18 16:00 09/11/18 16:00 09/11/18 16:00 09/11/18 16:00 09/11/18 16:00 General: Oriented x3 HEENT: Atraumatic Neck: Without JVD or thyroid abnormality Respiratory: Clear to auscultation bilaterally Cardiovascular: No edema, Normal S1 S2 Gastrointestinal: Normal bowel sounds - Problems (1) Elevated WBC count Onset Date: 09/10/18 Current Visit: Yes Status: Acute (2) Elevated liver enzymes Onset Date: 09/10/18 Current Visit: Yes Status: Acute (3) Elevated troponin Onset Date: 09/10/18 Current Visit: Yes Status: Acute (4) UTI (urinary tract infection) Onset Date: 09/10/18 Current Visit: Yes Status: Acute (5) Rhabdomyolysis Onset Date: 07/02/18 Current Visit: No Status: Acute Qualifiers: Rhabdomyolysis type: non-traumatic Qualified Code(s): M62.82 - Rhabdomyolysis Conclusions/Impression: History Of Present Illness: A 72-year-old man with past medical history of morbid obesity, hypertension on candisartan and HCTZ, hyperlipidemia, osteoarthritis. Pt presented after fall, was feeling weak and fell to ground no chest pain, paliptation, LOC or headtrauma in ER SBP 94 found to have Cr 3.1 pt have similar presentation recently with RIRI and peak Cr ~5.1 that improved on IVF and pt was dischargd with CR 1.2 pt was taking candisartan after discharge , thought he was instructed to stop taking vefore discharge Assessment and plan RIRI likely prerenal and rhabdomylosis improved on IVF 3.1>2.6>2.1 cont IVF will dc richard on Saturday abd CT: no hydro F/U UPC UTI Ucx: GNR on levofloxacin Rhabdomylosis Cont IVF Elevated LFT Abd CT: fatty infiltrate improving on IVF S/P falls PT elevated CE Asymptomatic significantly improved
[2018-09-12] MEDS: NA CHLORIDE 0.9% 1,000 ML IV SCH ×3 (00:48→21:35)
[2018-09-12] MEDS: ALBUTEROL 2.5 MG/3 ML NEB SOL NEB SCH ×2 (01:35→07:34)
[2018-09-12] MEDS: CARVEDILOL 3.125 MG TAB PO SCH ×2 (05:09→17:51)
[2018-09-12 06:20] LABS: Urine Protein/Creatinine Ratio 0.63 ratio (<0.15)
[2018-09-12 06:32] LABS: Absolute Lymphocytes (CBC) 1.8 K/uL (0.7-4.9); Absolute Monocytes 0.7 K/uL (0.1-1.3); Absolute Neutrophil 5.1 K/uL (1.8-8.0); Basophils % 0.4 % (0-1.3); Eosinophils % 3.7 % (0-4.4); Hematocrit 28.3 % (39.6-49.0); Lymphocytes % 22.7 % (15.3-44.8); MCH 30.8 pg (27.0-35.0); MCV 89.1 fL (80-100); MPV 8.7 fL (7.6-11.3); Monocytes % 8.8 % (3.3-12.3); RBC Red Blood Cell Count 3.18 M/uL (4.33-5.43)
[2018-09-12 06:48] LABS: Albumin 2.6 g/dL (3.4-5.0); Bilirubin Total 0.4 mg/dL (0.2-1.0); Ferritin 701.1 ng/mL (26-388); Magnesium 2.4 mg/dL (1.8-2.4); Potassium 4.2 mmol/L (3.5-5.1); Protein, Total 6.8 g/dL (6.4-8.2)
[2018-09-12] MEDS: HOME MED 1 EA UNK (Brimonidine Tartrate/Timolol [Combigan 0.2%-0.5% Eye Drops] 1 GTT) LEFT EYE SCH ×2 (08:41→20:33)
[2018-09-12] MEDS: ENOXAPARIN 30 MG/0.3 ML SQ SCH (08:41)
--- NOTE | 2018-09-12 09:36 | RAD REPORT ---
EXAM DESCRIPTION: Shoulder Right 2 View - 09/12/2018 9:10 am CLINICAL HISTORY: Shoulder pain, possible rotator cuff injury COMPARISON: None. TECHNIQUE: Internal and external rotation views of the right shoulder were obtained. FINDINGS: There is no fracture or dislocation. AC joint degenerative changes are present with a pro minent inferiorly directed spur off of the clavicle. Acromial humeral joint space is normal with no a bnormal soft tissue calcification. No acute or suspicious findings. IMPRESSION: No acute shoulder joint finding. Moderately prominent bone spur from the clavicle. This may well encroach on the supraspinatus musculo tendinous junction. Concerns for rotator cuff tear can be further addressed with MR imaging.
[2018-09-12] MEDS ORDERED: ACETAMINOPHEN 325 MG TABLET PO PRN (11:54)
[2018-09-12] MEDS ORDERED: TRAMADOL HCL 50 MG TAB PO PRN (11:54)
[2018-09-12] MEDS ORDERED: ALBUTEROL 2.5 MG/3 ML NEB SOL NEB PRN (12:03)
--- NOTE | 2018-09-12 12:03 | P.PN ---
Subjective Date of Service: 09/12/18 Primary Care Provider: Dr. Joe Chief Complaint: RIRI Subjective: Improving (Patient feeling better. Patient desires Morales catheter to be removed. Less sore today. Better movement of right upper extremity) Physical Examination - Vital Signs Temperature: 97.3 F Blood Pressure: 110/52 Pulse: 67 Respirations: 20 Pulse Ox (%): 97 - Physical Exam General: Alert, In no apparent distress, Oriented x3, Cooperative HEENT: Atraumatic Neck: Supple Respiratory: Clear to auscultation bilaterally, Normal air movement Cardiovascular: Normal pulses, Regular rate/rhythm Gastrointestinal: Normal bowel sounds, Soft and benign, Non-distended, No tenderness, No masses, No rebound, No guarding Musculoskeletal: No tenderness, No warmth, Other (Less pain and better movement to the right upper extremity) Integumentary: No erythema, No warmth, No cyanosis Neurological: Normal speech, Normal strength at 5/5 x4 extr, Normal tone, Normal affect - Studies Medications List Reviewed: Yes Assessment & Plan Discharge Plan: Home Plan to discharge in: 24 Hours Physician Review Additional Text: Impression: Acute renal failure secondary to rhabdomyolysis Multiple falls UTI Right shoulder pain suspect rotator cuff injury Hypokalemia Hypertension Anemia likely of chronic disease Elevated liver function with borderline fatty liver Obesity, BMI 45 Plan: Acute renal failure secondary to rhabdomyolysis: Continue with IV fluids. Patient has significantly improved. Renal function also improved. Medications adjusted. Patient no longer taking hydrochlorothiazide and Arb inhibitor. Will recommend to discontinue at discharge. Will continue with ambulation. Monitor renal function. Will discuss with nephrology. Anticipate discharge tomorrow. Will discontinue Morales catheter at the request of the patient. Hypokalemia: Will monitor and replace appropriately. UTI: Urine culture pending. Will transition to Levaquin orally. Right shoulder pain, suspect rotator cuff injury: Spoke with orthopedics. Patient can be seen as an outpatient to further evaluate. Continue with physical therapy. No heavy lifting, pushing or pulling. Multiple falls: Will have physical therapy continue to assess ambulation. Encourage ambulation. Fall precaution in place Hypertension: Hydrochlorothiazide and Arb inhibitor discontinued due to acute renal failure. Will recommend to discontinue both medications at discharge. Patient now on carvedilol 3.125 mg 1 pill twice daily. Blood pressure stable. Anemia likely of chronic disease, iron deficiency noted: Will start iron supplementation. Will monitor hemoglobin. Elevated liver function with borderline fatty liver: Lifestyle modification education will be provided. Obesity, BMI 45: Will continue to address lifestyle modification education. Time Spent Managing Pts Care (In Minutes): 55
--- NOTE | 2018-09-12 16:08 | P.PN ---
Subjective Date of Service: 09/12/18 Primary Care Provider: Dr. Joe Chief Complaint: RIRI No new complaints Cr improved to 1.6 Leg edema Dc richard and TOV Hold IVF Physical Examination - Vital Signs Temperature: 97.3 F Blood Pressure: 110/52 Pulse: 67 Respirations: 20 Pulse Ox (%): 97 - Physical Exam General: Oriented x3 Neck: Supple, Without JVD or thyroid abnormality Respiratory: Clear to auscultation bilaterally Cardiovascular: Edema - Studies Medications List Reviewed: Yes Assessment And Plan - Current Problems (Diagnosis) (1) Elevated WBC count Onset Date: 09/10/18 Current Visit: Yes Status: Acute (2) Elevated liver enzymes Onset Date: 09/10/18 Current Visit: Yes Status: Acute (3) Elevated troponin Onset Date: 09/10/18 Current Visit: Yes Status: Acute (4) UTI (urinary tract infection) Onset Date: 09/10/18 Current Visit: Yes Status: Acute (5) Rhabdomyolysis Onset Date: 07/02/18 Current Visit: No Status: Acute Qualifiers: Rhabdomyolysis type: non-traumatic Qualified Code(s): M62.82 - Rhabdomyolysis - Plan History Of Present Illness: A 72-year-old man with past medical history of morbid obesity, hypertension on candisartan and HCTZ, hyperlipidemia, osteoarthritis. Pt presented after fall, was feeling weak and fell to ground no chest pain, paliptation, LOC or headtrauma in ER SBP 94 found to have Cr 3.1 pt have similar presentation recently with RIRI and peak Cr ~5.1 that improved on IVF and pt was dischargd with CR 1.2 pt was taking candisartan after discharge , thought he was instructed to stop taking vefore discharge Assessment and plan RIRI likely prerenal and rhabdomylosis improved on IVF 3.1>2.6>2.1 >1.6 IVF on hold for now abd CT: no hydro UPC 0.6 UTI Ucx: GNR , mixed ministerio on levofloxacin Rhabdomylosis Cont IVF HTN on PAM or ARBS on dischare Elevated LFT Abd CT: fatty infiltrate improving on IVF S/P falls PT elevated CE Asymptomatic significantly improved
[2018-09-12] MEDS: FERROUS SULFATE 325 MG TAB PO SCH (20:32)
[2018-09-12] MEDS: HOME MED 1 EA UNK (Travoprost (Benzalkonium) [Travatan 0.004% Eye Drop] 1 GTT) OP SCH (20:33)
[2018-09-13] MEDS: CARVEDILOL 3.125 MG TAB PO SCH (05:01)
[2018-09-13 05:30] LABS: Absolute Lymphocytes (CBC) 1.9 K/uL (0.7-4.9); Absolute Monocytes 0.7 K/uL (0.1-1.3); Absolute Neutrophil 4.5 K/uL (1.8-8.0); Basophils % 0.5 % (0-1.3); Eosinophils % 5.6 % (0-4.4); Hematocrit 28.4 % (39.6-49.0); Lymphocytes % 25.1 % (15.3-44.8); MCH 30.4 pg (27.0-35.0); MCV 89.8 fL (80-100); MPV 8.4 fL (7.6-11.3); Monocytes % 8.8 % (3.3-12.3); RBC Red Blood Cell Count 3.16 M/uL (4.33-5.43)
[2018-09-13 05:45] LABS: Albumin 2.6 g/dL (3.4-5.0); Bilirubin Total 0.4 mg/dL (0.2-1.0); Protein, Total 6.5 g/dL (6.4-8.2)
[2018-09-13] MEDS: NA CHLORIDE 0.9% 1,000 ML IV SCH (07:45)
[2018-09-13] MEDS: FERROUS SULFATE 325 MG TAB PO SCH (08:31)
[2018-09-13] MEDS: ENOXAPARIN 30 MG/0.3 ML SQ SCH (08:31)
[2018-09-13] MEDS: HOME MED 1 EA UNK (Brimonidine Tartrate/Timolol [Combigan 0.2%-0.5% Eye Drops] 1 GTT) LEFT EYE SCH (08:41)
[2018-09-13] MEDS ORDERED: levoFLOXacin 250 MG TAB PO SCH (09:00)
--- NOTE | 2018-09-13 09:08 | P.DS ---
Admission Date: 09/09/18 Discharge Date: 09/13/18 Primary Care Provider: Dr. Joe Disposition: ROUTINE DISCHARGE Discharge Condition: GOOD Reason for Admission: RIRI Consultations: Nephrology-Dr. Miller Procedures: CT scan: COMPARISON: CT imaging June 2018 TECHNIQUE: Axial [address] imaging of the abdomen and pelvis was performed without IV contrast. No IV contrast was given because of allergy, abnormal renal function, patient refusal or physician request. No oral contrast administered. All CT scans are performed using dose optimization technique as appropriate and may include automated exposure control or mA/KV adjustment according to patient size. FINDINGS: No suspicious findings in the lung bases. Liver size is normal. No nodular capsule or focal liver lesion. Attenuation is borderline fatty infiltrated. No splenomegaly or focal splenic abnormality. No pancreatic or peripancreatic acute process. Cholecystectomy clips are present. No biliary tree dilatation. No hydronephrosis or suspicious renal mass. Nonspecific perinephric stranding is seen similar to comparison. This is not regarded as significant. Urinary bladder is mostly contracted. Morales catheter is in place. Presence of the catheter limits ability to assess the bladder base/trigone region. Prostate gland is prominent projecting into the bladder base. Pattern is not substantially different from short interval study. No significant adrenal finding. Isodense renal masses and pyelonephritis cannot be excluded in the absence of IV contrast. No dilated bowel loops or bowel wall thickening. No free air, free fluid or inflammatory stranding. No mass or bulky lymphadenopathy. Small bilateral fat filled inguinal hernias are present. There is significant atrophy of the abdominal wall musculature. Small fat only umbilical hernia is present. Disc and bony degenerative change present. No pathologic bone process seen. IMPRESSION: Borderline fatty infiltration of the liver parenchyma. No focal liver lesion identifiable. Cholecystectomy change with no biliary tree dilatation or pancreatic abnormality. Urinary bladder is contracted limiting assessment. Morales catheter is in place further limiting assessment of the bladder base and trigone. Prostate projects into the bladder base similar to June imaging. Abdominal ultrasound: COMPARISON: June 2018 cat scan FINDINGS: The echotexture of the liver appears normal. Echogenic areas are visualized within the liver which are ill-defined. Biliary tree is not well visualized but probably is normal caliber. IMPRESSION: Ill-defined echogenic areas within the liver which are ill- defined. These probably represent normal fat within the fissures. Less likely consideration is that these represent air. It is recommended that patient have an unenhanced CT scan of the abdomen for further evaluation Medical problem list: Acute renal failure secondary to rhabdomyolysis likely related to medication and dehydration Multiple falls Right shoulder pain suspect rotator cuff injury Hypokalemia Hypertension Anemia likely of chronic disease Elevated liver function with borderline fatty liver Obesity, BMI 45 Brief History of Present Illness: 72-year-old male presented emergency room with decrease appetite, multiple falls. Patient found to be dehydrated with acute renal failure, rhabdomyolysis and hyponatremia. Patient was admitted for further evaluation. Patient had been hospitalized in [facility] at this past year for similar issues related to acute renal failure, rhabdomyolysis and dehydration. Patient had a heat exhaustion at that time. Hospital Course: Patient presented with acute renal failure secondary to rhabdomyolysis and dehydration complicated with use of diuretic therapy and Arb inhibitor for his hypertension. Patient had been hospitalized in June 2018 for similar issues. Patient has been taking hydrochlorothiazide and Arb inhibitor-Candasartan. During his hospitalization both medications were discontinued. Patient was given IV fluids. Nephrology was consulted to further assess. His symptoms improved with IV fluids. His renal function now back to baseline. At discharge patient will continued with good oral intake. Recommendations for the patient follow up with nephrology in 1 week to monitor his progress. Recommendation to recheck lab-BMP in 1 week to monitor his renal function. Medications have been adjusted. At discharge he will continue with carvedilol 3.125 mg 1 pill twice daily and hydrochlorothiazide 12.5 mg 1 pill daily for his hypertension. Medications will need to be adjusted in the future this can be done by his PCP or nephrology. Patient is to be released back to work by nephrology after he is seen as an outpatient. His Arb inhibitor-Candasartan has been discontinued at discharge. Recommendation on no further use of nonsteroidal anti-inflammatories in the future. Future medications will need to be renally dosed. Patient had electrolyte abnormalities. This improved with replacement. Since the patient will go home on hydrochlorothiazide patient will need to increase his potassium intake. Recommendation to recheck lab-BMP in 1 week. If still decrease patient may require potassium supplementation. This could be further monitored and addressed by his PCP or nephrology. Patient was evaluated for UTI. Urine culture negative. Patient was treated with antibiotics during his hospitalization for suspected UTI. No need for antibiotics at discharge since urine culture negative. UTI prevention education will be provided. Patient had right shoulder pain. Patient had multiple falls prior to admission. X-ray reveals possible rotator cuff injury. Recommendation is for the patient to follow up with orthopedics as an outpatient to further evaluate. Patient will likely require MRI to further evaluate. Patient will continue with physical therapy recommendations at this time. No heavy lifting, pushing or pulling. Patient has hypertension. Medications have been adjusted during his stay. At discharge Arb inhibitor-candesartan has been discontinued. Hydrochlorothiazide has been decreased. At discharge he will continue with carvedilol 3.125 mg 1 pill twice daily and hydrochlorothiazide 12.5 mg 1 pill daily. Recommendation is to maintain blood pressures less 150/80. Further adjustment can be done by his PCP or nephrology. Patient found to have iron deficiency anemia. At discharge patient will continue with iron supplementation 325 mg 1 pill twice daily. Recommendation is for the patient to follow up with GI as an outpatient for EGD/colonoscopy evaluation. Patient with elevated liver function. CT scan revealed borderline fatty liver. Education on fatty liver will be provided. Patient may follow up with GI as an outpatient to further address. Patient with obesity. BMI 45. Lifestyle modification education will be provided at discharge. Vital Signs/Physical Exam: Temp Pulse Resp BP Pulse Ox 96.9 F 60 20 145/66 H 99 09/13/18 04:00 09/13/18 05:01 09/13/18 04:00 09/13/18 05:01 09/13/18 04:00 General: Alert, In no apparent distress, Oriented x3, Cooperative HEENT: Atraumatic Neck: Supple Respiratory: Clear to auscultation bilaterally, Normal air movement Cardiovascular: Normal pulses, Regular rate/rhythm Gastrointestinal: Normal bowel sounds, Soft and benign, Non-distended Musculoskeletal: No erythema, No tenderness, No warmth Integumentary: No tenderness/swelling, No erythema, No warmth, No cyanosis Neurological: Normal speech, Normal strength at 5/5 x4 extr, Normal tone, Normal affect Laboratory Data at Discharge: WBC 7.6 K/uL (4.3-10.9) 09/13/18 04:31 Hgb 9.6 g/dL (13.6-17.9) L 09/13/18 04:31 Hct 28.4 % (39.6-49.0) L 09/13/18 04:31 Plt Count 249 K/uL (152-406) 09/13/18 04:31 PT 13.9 SECONDS (9.5-12.5) H 09/09/18 12:05 INR 1.18 09/09/18 12:05 Sodium 141 mmol/L (136-145) 09/13/18 04:31 Potassium 4.0 mmol/L (3.5-5.1) 09/13/18 04:31 BUN 32 mg/dL (7-18) H 09/13/18 04:31 Creatinine 1.30 mg/dL (0.55-1.3) 09/13/18 04:31 Glucose 103 mg/dL (74-106) 09/13/18 04:31 Phosphorus 3.9 mg/dL (2.5-4.9) 09/10/18 06:28 Magnesium 2.4 mg/dL (1.8-2.4) 09/12/18 04:53 Total Bilirubin 0.4 mg/dL (0.2-1.0) 09/13/18 04:31 AST 189 U/L (15-37) H 09/13/18 04:31 ALT 148 U/L (12-78) H 09/13/18 04:31 Alkaline Phosphatase 84 U/L (45-117) 09/13/18 04:31 Troponin I 0.34 ng/mL (0.0-0.045) H 09/11/18 06:00 Home Medications: Brimonidine Tartrate/Timolol [Combigan 0.2%-0.5% Eye Drops] 1 gtt LEFT EYE BID 07/01/18 Travoprost (Benzalkonium) [Travatan 0.004% Eye Drop] 1 gtt OP BEDTIME 07/01/18 Carvedilol [Coreg*] 3.125 mg PO BID 6AM 6PM #60 tab 09/13/18 Ferrous Sulfate [Ferrous Sulfate*] 325 mg PO BID #60 tab 09/13/18 hydroCHLOROthiazide [Hydrochlorothiazide*] 12.5 mg PO DAILY #30 cap 09/13/18 New Medications: Carvedilol [Coreg*] 3.125 mg PO BID 6AM 6PM #60 tab Ferrous Sulfate [Ferrous Sulfate*] 325 mg PO BID #60 tab hydroCHLOROthiazide [Hydrochlorothiazide*] 12.5 mg PO DAILY #30 cap Patient Discharge Instructions: 1. Patient will need to follow up with a PCP in 1 week to follow up this hospitalization. 2. Patient presented with acute renal failure secondary to rhabdomyolysis and dehydration complicated with use of diuretic therapy and Arb inhibitor for his hypertension. Patient had been hospitalized in June 2018 for similar issues. Patient was given IV fluids. Nephrology was consulted to further assess. His symptoms improved with IV fluids. His renal function now back to baseline. At discharge patient will continued with good oral intake. Recommendations for the patient follow up with nephrology in 1 week to monitor his progress. Recommendation to recheck lab-BMP in 1 week to monitor his renal function. Medications have been adjusted. At discharge he will continue with carvedilol 3.125 mg 1 pill twice daily and hydrochlorothiazide 12.5 mg 1 pill daily for his hypertension. Medications will need to be adjusted in the future this can be done by his PCP or nephrology. Patient is to be released back to work by nephrology after he is seen as an outpatient. His Arb inhibitor-Candasartan has been discontinued at discharge. Recommendation on no further use of nonsteroidal anti- inflammatories in the future. Future medications will need to be renally dosed. 3. Patient had electrolyte abnormalities. This improved with replacement. Since the patient will go home on hydrochlorothiazide patient will need to increase his potassium intake. Recommendation to recheck lab-BMP in 1 week. If still decrease patient may require potassium supplementation. This could be further monitored and addressed by his PCP or nephrology. 4. Patient was evaluated for UTI. Patient was treated with antibiotics during his hospitalization for suspected UTI. No need for antibiotics at discharge since urine culture negative. UTI prevention education will be provided. 5. Patient had right shoulder pain. Patient had multiple falls prior to admission. X-ray reveals possible rotator cuff injury. Recommendation is for the patient to follow up with orthopedics as an outpatient to further evaluate. Patient will likely require MRI to further evaluate. Patient will continue with physical therapy recommendations at this time. No heavy lifting, pushing or pulling. 6. Patient has hypertension. Medications have been adjusted during his stay. At discharge Arb inhibitor-candesartan has been discontinued. Hydrochlorothiazide has been decreased. At discharge he will continue with carvedilol 3.125 mg 1 pill twice daily and hydrochlorothiazide 12.5 mg 1 pill daily. Recommendation is to maintain blood pressures less 150/80. Further adjustment can be done by his PCP or nephrology. 7. Patient found to have iron deficiency anemia. At discharge patient will continue with iron supplementation 325 mg 1 pill twice daily. Recommendation is for the patient to follow up with GI as an outpatient for EGD/colonoscopy evaluation. 8. Patient with elevated liver function. CT scan revealed borderline fatty liver. Education on fatty liver will be provided. Patient may follow up with GI as an outpatient to further address. 9. Patient with obesity. BMI 45. Lifestyle modification education will be provided at discharge. Diet: Renal Activity: Fall precautions Time spent managing pt's care (in minutes): 55
== END 2018-09-13 13:40 | disposition home or self-care (01) | DRG 683 ==
LOC: ER 12:32 → ERHOLD 16:42 → 2ND 19:08
PROVIDERS: ADMIT Family Medicine; ATTEND Family Medicine
DX: N17.9 Acute kidney failure, unspecified (principal); M62.82 Rhabdomyolysis; E87.1 Hypo-osmolality and hyponatremia; Z68.42 Body mass index [BMI] 45.0-49.9, adult; N39.0 Urinary tract infection, site not specified; E86.0 Dehydration; Z91.81 History of falling; E87.6 Hypokalemia; R94.5 Abnormal results of liver function studies; K76.0 Fatty (change of) liver, not elsewhere classified; E87.8 Other disorders of electrolyte and fluid balance, not elsewhere classified; S43.421A Sprain of right rotator cuff capsule, initial encounter; S46.001A Unspecified injury of muscle(s) and tendon(s) of the rotator cuff of right shoulder, initial encounter; W18.30XA Fall on same level, unspecified, initial encounter; Y93.9 Activity, unspecified; Y92.019 Unspecified place in single-family (private) house as the place of occurrence of the external cause; I10 Essential (primary) hypertension; D50.9 Iron deficiency anemia, unspecified; Z88.0 Allergy status to penicillin; Z88.2 Allergy status to sulfonamides; E66.01 Morbid (severe) obesity due to excess calories; E78.5 Hyperlipidemia, unspecified; M19.90 Unspecified osteoarthritis, unspecified site
CPT/HCPCS: 36415; 51702; 70450; 71045; 74176; 76705; 80048; 80053; 80076; 81003; 81015; 82550; 82553; 82570; 82607; 82728; 83540; 83605; 83735; 83880; 84100; 84132; 84145; 84156; 84466; 84484; 85025; 85610; 87040; 87077; 87086; 87088; 87186; 93005; 94640; 94760; 96361; 96365; 96368; 96375; 97163; 99285; J1650; J3010; J7030